=== PATIENT | female | born 1955 | race Caucasian/White ===

== ENCOUNTER 2016-05-15 14:01 | Inpatient (IN) ==
--- NOTE | 2016-05-15 14:20 | Emergency Department Note ---
Disposition Clinical Impression: Hyperlipidemia, Diarrhea, Crohns disease, Obesity, Chest pain, Hypotension, History of Coumadin therapy, Anemia, History of hypertension, Cerebrovascular disease, Thrombocythemia Disposition: Admitted As Inpatient Referrals: Lynda Messer CNP [Primary Care Provider] - Forms: Work/School Release, ED Satisfaction Letter General Adult HPI - General Chief complaint: ED General Medical Stated complaint: syncope/urinary symptoms Time Seen by Provider: 05/15/16 14:19 Source: patient, family Limitations: no limitations - History of Present Illness HPI Narrative: 61-year-old female reports to the emergency department with concerns for low blood pressure. She was recently evaluated regarding stool samples for her diarrhea, a stool panel was performed, a positive Calprotectin is was reported. The patient reports her diarrhea has been significant without bryce blood. She states she is on Coumadin for previous DVT and possible cardiac arrhythmia. The patient states she has had some generalized abdominal pain, she also complains of left upper chest pain which has been intermittent and sometimes somewhat sharp. The patient has not had any cardiac testing for many years. She has a history of cerebrovascular disease as well as obesity, hypertension, and hyperlipidemia. There is no history of cough or coughing up blood leg swelling or pain or syncope. She has felt weak like her blood pressure is low, her reported her blood pressure was measured very low at the house. There is no history of fever. No convulsion or confusion or acute back pain or fall. No trouble moving the arms or legs independently no strokelike symptoms. The patient's main concerns are diarrhea which has been persistent, low blood pressure, weakness and near syncope, as well as chest pain which is been sharp on the left side. The patient denies any bleeding. She is reportedly anticoagulated on warfarin. Pain Scale: 6 - Related Data Allergies Allergy/AdvReac Type Severity Reaction Status Date / Time naproxen [From Naprosyn] AdvReac Vomiting Verified 11/29/14 12:29 Penicillins AdvReac Seizure Verified 11/29/14 12:29 All systems ED: reviewed and negative except as stated. Past Medical History - Past Medical History Medical history: Reports: arthritis, CVA, fibromyalgia, hyperlipidemia, hypertension, thyroid disease, other Surgical history: Reports: carotid endarterectomy, cholecystectomy, hysterectomy Psychiatric history: Reports: anxiety, depression - Social History Smoking Status: Never smoker Smokeless Tobacco Status: No Alcohol use: Reports: none Drug use: Reports: none Physical Exam - General Limitations: no limitations General appearance: alert, in no apparent distress - Head Head exam: atraumatic, normocephalic, normal inspection - Eye Eye exam: Present: normal appearance, PERRL, EOMI. Absent: scleral icterus, conjunctival injection, miosis, mydriasis - ENT ENT exam: normal exam, normal oropharynx, mucous membranes moist, TM's normal bilaterally, normal external ear exam - Neck Neck exam: Present: normal inspection, full ROM, trachea midline. Absent: meningismus - Chest Chest inspection: Present: symmetric chest wall rise. Absent: tenderness - Respiratory Respiratory exam: Present: normal lung sounds bilaterally. Absent: respiratory distress - Cardiovascular Cardiovascular exam: Present: regular rate, normal rhythm, normal heart sounds - Abdominal Exam Abdominal exam: Present: soft, Non-Tender, Lee's sign, Rovsing's sign, tenderness at McBurney's Point. Absent: tenderness, distention, guarding, rebound, rigidity, normal bowel sounds, pulsatile mass - Extremities Exam Extremities exam: Present: normal inspection, full ROM, normal capillary refill. Absent: tenderness, pedal edema, joint swelling, calf tenderness - Expanded Lower Extremity Exam Lower leg exam: Absent: Homans' sign Neurovascular/Tendon exam: Absent: motor deficit, sensory deficit, tendon deficit, extremity cold to touch, pallor - Back Exam Back exam: Present: normal inspection, full ROM. Absent: tenderness, CVA tenderness (R), CVA tenderness (L), vertebral tenderness - Neurological Exam Neurological exam: Present: alert, oriented X3, CN II-XII intact. Absent: motor sensory deficit - Psychiatric Psychiatric exam: Present: normal affect, normal mood - Skin Skin exam: Present: warm, dry, intact, normal color. Absent: rash, cyanosis, diaphoresis, erythema, pallor, mottled Course Vital Signs Temperature 98.2 F 05/15/16 14:06 Pulse Rate 80 05/15/16 14:06 Respiratory Rate 16 05/15/16 14:06 Blood Pressure 102/61 05/15/16 14:06 O2 Sat by Pulse Oximetry 95 05/15/16 14:06 Temperature 98.2 F 05/15/16 14:06 Pulse Rate 78 05/15/16 15:15 Respiratory Rate 14 05/15/16 15:15 Blood Pressure 122/71 05/15/16 15:15 O2 Sat by Pulse Oximetry 98 05/15/16 15:15 Oxygen Delivery Oxygen Delivery Room Air Medical Decision Making - MDM Narrative Medical decision making narrative: The patient appears to be stable. She has had some diarrhea probably secondary to Crohn's. I do not have a previous hemoglobin to compare to. She is anemic. The patient is anticoagulated on Coumadin with an INR of 3.5. She has been complaining of some left-sided chest pain, she is obese, elderly, and has a history of hypertension and hyperlipidemia. Her cardiac testing here is essentially negative. Chest x-ray negative. Based on her risk factors and concerns for chest pain, significant risk factors for ACS, and near syncope, I thought it would be appropriate to admit the patient for further evaluation. I discussed the case with the hospitalist on-call who has accepted the patient to their care. Aspirin was ordered in the ED. - Lab Data Lab results reviewed: Yes I reviewed the patient's lab results. Result diagrams: 05/15/16 14:35 05/15/16 14:35 Lab Results 05/15/16 05/15/16 05/15/16 Range/Units 14:35 14:35 14:35 WBC 7.2 (4.3-11.1) K/mcL RBC 3.66 L (3.82-4.97) M/mcL Hgb 9.5 L (11.5-15.4) g/dL Hct 30.4 L (35.3-44.9) % MCV 83.1 (83.0-100.0) fL MCH 26.0 L (28.0-33.3) pg MCHC 31.3 L (31.6-35.5) g/dL RDW 13.9 (11.5-14.5) % Plt Count 469 H (140-400) K/mcL MPV 10.2 (9.4-12.4) fL Seg Neutrophils % 46.0 % Band Neutrophils % 2.0 (0-4) % Lymphocytes % 32.0 % Monocytes % 16.0 % Eosinophils % 4.0 % Neutrophils # 3.5 (1.6-8.9) K/mcL Lymphocytes # 2.3 (0.6-4.6) K/mcL Monocytes # 1.2 (0.0-1.3) K/mcL Eosinophils # 0.3 (0.0-0.6) K/mcL PT 39.6 H (9.4-12.1) Seconds INR 3.5 APTT 41.9 H (26.0-36.0) Seconds Sodium 139 (136-145) mEq/L Potassium 4.2 (3.5-4.5) mEq/L Chloride 106 (98-109) mEq/L Carbon Dioxide 24 (19-29) mEq/L BUN 17 (7-20) mg/dL Creatinine 0.64 (0.57-1.11) mg/dL Est GFR ( Amer) > 60 (> 60) Est GFR (Non-Af Amer) > 60 (> 60) BUN/Creatinine Ratio 27 H (6-26) Glucose 82 (70-99) mg/dL Calculated Osmolality 289 (280-300) Lactic Acid (0.5-2.2) mmol/L Calcium 7.7 L (8.6-10.8) mg/dL Total Bilirubin (0.2-1.2) mg/dL Direct Bilirubin (0.0-0.5) mg/dL Indirect Bilirubin (0.0-1.2) mg/dL AST (5-34) Units/L ALT (0-55) Units/L Alkaline Phosphatase (38-126) Units/L Creatine Kinase 42 (29-168) Units/L Troponin I (0-0.03) ng/mL C-Reactive Protein (Less than 5) mg/L Serum Total Protein (6.0-8.3) g/dL Albumin (3.5-5.0) g/dL Globulin (2.4-3.5) g/dL Albumin/Globulin Ratio (1.1-2.2) Lipase (8-78) Units/L Urine Color (Yellow) Urine Clarity (Clear) Urine pH (5.0-8.0) pH Units Ur Specific [place] (1.010-1.025) Urine Protein (Neg-Trace) mg/dL Urine Glucose (UA) (Normal) mg/dL Urine Ketones (Negative) mg/dL Urine Blood (Negative) Urine Nitrite (Negative) Urine Bilirubin (Negative) Urine Urobilinogen (Normal) mg/dL Ur Leukocyte Esterase (Negative) 05/15/16 05/15/1605/15/17 Range/Units 14:35 14:35 15:29 WBC (4.3-11.1) K/mcL RBC (3.82-4.97) M/mcL Hgb (11.5-15.4) g/dL Hct (35.3-44.9) % MCV (83.0-100.0) fL MCH (28.0-33.3) pg MCHC (31.6-35.5) g/dL RDW (11.5-14.5) % Plt Count (140-400) K/mcL MPV (9.4-12.4) fL Seg Neutrophils % % Band Neutrophils % (0-4) % Lymphocytes % % Monocytes % % Eosinophils % % Neutrophils # (1.6-8.9) K/mcL Lymphocytes # (0.6-4.6) K/mcL Monocytes # (0.0-1.3) K/mcL Eosinophils # (0.0-0.6) K/mcL PT (9.4-12.1) Seconds INR APTT (26.0-36.0) Seconds Sodium (136-145) mEq/L Potassium (3.5-4.5) mEq/L Chloride (98-109) mEq/L Carbon Dioxide (19-29) mEq/L BUN (7-20) mg/dL Creatinine (0.57-1.11) mg/dL Est GFR ( Amer) (> 60) Est GFR (Non-Af Amer) (> 60) BUN/Creatinine Ratio (6-26) Glucose (70-99) mg/dL Calculated Osmolality (280-300) Lactic Acid 0.7 (0.5-2.2) mmol/L Calcium (8.6-10.8) mg/dL Total Bilirubin (0.2-1.2) mg/dL Direct Bilirubin (0.0-0.5) mg/dL Indirect Bilirubin (0.0-1.2) mg/dL AST (5-34) Units/L ALT (0-55) Units/L Alkaline Phosphatase (38-126) Units/L Creatine Kinase (29-168) Units/L Troponin I 0.01 (0-0.03) ng/mL C-Reactive Protein 110 H (Less than 5) mg/L Serum Total Protein (6.0-8.3) g/dL Albumin (3.5-5.0) g/dL Globulin (2.4-3.5) g/dL Albumin/Globulin Ratio (1.1-2.2) Lipase (8-78) Units/L Urine Color (Yellow) Urine Clarity (Clear) Urine pH (5.0-8.0) pH Units Ur Specific [place] (1.010-1.025) Urine Protein (Neg-Trace) mg/dL Urine Glucose (UA) (Normal) mg/dL Urine Ketones (Negative) mg/dL Urine Blood (Negative) Urine Nitrite (Negative) Urine Bilirubin (Negative) Urine Urobilinogen (Normal) mg/dL Ur Leukocyte Esterase (Negative) 05/15/16 05/15/16 05/15/16 Range/Units 15:29 15:29 16:55 WBC (4.3-11.1) K/mcL RBC (3.82-4.97) M/mcL Hgb (11.5-15.4) g/dL Hct (35.3-44.9) % MCV (83.0-100.0) fL MCH (28.0-33.3) pg MCHC (31.6-35.5) g/dL RDW (11.5-14.5) % Plt Count (140-400) K/mcL MPV (9.4-12.4) fL Seg Neutrophils % % Band Neutrophils % (0-4) % Lymphocytes % % Monocytes % % Eosinophils % % Neutrophils # (1.6-8.9) K/mcL Lymphocytes # (0.6-4.6) K/mcL Monocytes # (0.0-1.3) K/mcL Eosinophils # (0.0-0.6) K/mcL PT (9.4-12.1) Seconds INR APTT (26.0-36.0) Seconds Sodium (136-145) mEq/L Potassium (3.5-4.5) mEq/L Chloride (98-109) mEq/L Carbon Dioxide (19-29) mEq/L BUN (7-20) mg/dL Creatinine (0.57-1.11) mg/dL Est GFR ( Amer) (> 60) Est GFR (Non-Af Amer) (> 60) BUN/Creatinine Ratio (6-26) Glucose (70-99) mg/dL Calculated Osmolality (280-300) Lactic Acid (0.5-2.2) mmol/L Calcium (8.6-10.8) mg/dL Total Bilirubin 0.2 (0.2-1.2) mg/dL Direct Bilirubin 0.1 (0.0-0.5) mg/dL Indirect Bilirubin 0.1 (0.0-1.2) mg/dL AST 10 (5-34) Units/L ALT 7 (0-55) Units/L Alkaline Phosphatase 123 (38-126) Units/L Creatine Kinase (29-168) Units/L Troponin I (0-0.03) ng/mL C-Reactive Protein (Less than 5) mg/L Serum Total Protein 5.4 L (6.0-8.3) g/dL Albumin 1.9 L (3.5-5.0) g/dL Globulin 3.5 (2.4-3.5) g/dL Albumin/Globulin Ratio 0.5 L (1.1-2.2) Lipase < 4 L (8-78) Units/L Urine Color Yellow (Yellow) Urine Clarity Clear (Clear) Urine pH 6.0 (5.0-8.0) pH Units Ur Specific [place] 1.024 (1.010-1.025) Urine Protein Negative (Neg-Trace) mg/dL Urine Glucose (UA) Normal (Normal) mg/dL Urine Ketones Negative (Negative) mg/dL Urine Blood Negative (Negative) Urine Nitrite Negative (Negative) Urine Bilirubin Negative (Negative) Urine Urobilinogen Normal (Normal) mg/dL Ur Leukocyte Esterase Negative (Negative) - Radiology Data Radiology results reviewed: Yes I reviewed the patient's radiology results.
[2016-05-15 14:44] LABS: Eosinophils # 0.3 K/mcL (0.0-0.6); Hematocrit 30.4 % (35.3-44.9); Hemoglobin 9.5 g/dL (11.5-15.4); Mean Corpuscular HGB Conc 31.3 g/dL (31.6-35.5); Mean Corpuscular Volume 83.1 fL (83.0-100.0); Mean Platelet Volume 10.2 fL (9.4-12.4); Platelet Count 469 K/mcL (140-400); Red Blood Count 3.66 M/mcL (3.82-4.97); Red Cell Distribution Width 13.9 % (11.5-14.5)
[2016-05-15 14:50] LABS: INR 3.5; Prothrombin Time 39.6 Seconds (9.4-12.1)
[2016-05-15 14:52] LABS: Activated Partial Thrombo Time 41.9 Seconds (26.0-36.0)
[2016-05-15 14:58] LABS: BUN/Creatinine Ratio 27 (6-26); Blood Urea Nitrogen 17 mg/dL (7-20); Calcium 7.7 mg/dL (8.6-10.8); Carbon Dioxide 24 mEq/L (19-29); Chloride 106 mEq/L (98-109); Creatine Kinase 42 Units/L (29-168); Glucose 82 mg/dL (70-99); Osmolality,Calculated 289 (280-300); Potassium 4.2 mEq/L (3.5-4.5); Sodium 139 mEq/L (136-145); eGFR For African Americans > 60 (> 60); eGFR For Non-African Americans > 60 (> 60)
[2016-05-15] MEDS ORDERED: Aspirin 325 MG TABLET PO ONE ×2 (14:58→15:15)
[2016-05-15 15:25] LABS: Lymphocytes # 2.3 K/mcL (0.6-4.6); Monocytes # 1.2 K/mcL (0.0-1.3); Neutrophils # 3.5 K/mcL (1.6-8.9)
[2016-05-15 15:50] LABS: Albumin 1.9 g/dL (3.5-5.0); Albumin/Globulin Ratio 0.5 (1.1-2.2); Bilirubin,Direct 0.1 mg/dL (0.0-0.5); Bilirubin,Indirect 0.1 mg/dL (0.0-1.2); Bilirubin,Total 0.2 mg/dL (0.2-1.2); Globulin 3.5 g/dL (2.4-3.5); Total Protein 5.4 g/dL (6.0-8.3)
[2016-05-15] MEDS ORDERED: *HR* LORazepam 2 MG/ML VIAL IVP ONE (17:14)
[2016-05-15 17:26] LABS: Bilirubin,Urine Negative (Negative); Blood,Urine Negative (Negative); Clarity,Urine Clear (Clear); Color,Urine Yellow (Yellow); Glucose,Urine (UA) Normal (Normal); Ketones,Urine Negative (Negative); Leukocyte Esterase,Urine Negative (Negative); Nitrite,Urine Negative (Negative); Protein,Urine Negative (Neg-Trace); Specific Gravity,Urine 1.024 (1.010-1.025); Urobilinogen,Urine Normal (Normal)
--- NOTE | 2016-05-15 20:32 | Internal Med History&Physical ---
<Sachi Boone - Last Filed: 05/16/16 01:54> Date of Encounter: 05/16/16 Time of Encounter: 20:30 Assessment and Plan (1) Diarrhea Current visit: Yes Status: Acute Patient presents with worsening of chronic diarrhea. She reports blood in her stool. Patient has seen Dr. Chambers in the past and had a colonoscopy in the past showing non-infectious gastroenteritis/colitis. Today patient has elevated CRP 110 and a recent PCR + for calprotectin. There is concern for a variant of Irritable Bowel Disease. We do need to ensure that this is not infectious in nature. Will get a c. diff, stool cutlure, and GI stool panel. Will also get a CT of the abdomen/pelvis with IV contrast. Should consider GI consult on Tuesday for further recommendations and evaluation. 1. CT scan abdomen and pelvis 2. C. Diff 3. Stool culture 4. GI stool panel 5. Consider consult to GI 6. Hold all antidiarrheal medications until we ensure this is not infectious Qualifiers: Diarrhea type: unspecified type Qualified Code(s): R19.7 - Diarrhea, unspecified (2) Anemia Current visit: Yes Status: Acute Patient with hemoglobin of 9.5 from 12.5 with lower blood pressures. She reports blood in her stool. Concern for possible GI bleed, which could be related to the primary cause of her diarrhea. Will trend H&H to ensure it remains stable. Will do a fecal occult blood. Patient may require upper and lower GI either here in the hospital or at a future date outpatient. 1. Trend H&H 2. Fecal occult blood 3. Iron studies 4. Will hold coumadin Qualifiers: Anemia type: unspecified type Qualified Code(s): D64.9 - Anemia, unspecified (3) Chest pain Current visit: Yes Status: Acute Patient reports left sided chest pain. Chest is tender to palpation and troponin 0.01. I do not believe that this chest pain is cardiac related. However, patient has had a previous heart attack, and has HLD and HTN. Patient has not had a cardiac work up in a long time. Will trend troponins and do further workup. She also says that the last time she had pain like this was before her endarterctomy. Will get BL carotid dopplars. 1. Trend troponins 2. ECHO 3. Stress Test 4. Carotid duplex Qualifiers: Chest pain type: unspecified Qualified Code(s): R07.9 - Chest pain, unspecified (4) Near syncope Current visit: Yes Status: Acute Near syncope due to unknown cause. She does have a history of dizziness on Midlizine. Current symptoms could be due to cardiac disease, carotid vascular disease, anemia or hypotension. Will continue with workout as described above. (5) Hypotension Current visit: Yes Status: Acute Will give fluids, monitor blood pressure and hold all blood pressure medications at this time. Qualifiers: Hypotension type: unspecified hypotension type Qualified Code(s): I95.9 - Hypotension, unspecified (6) Hypomagnesemia Current visit: Yes Status: Acute Replace magnesium and recheck (7) DVT prophylaxis Current visit: Yes Status: Acute SDC for DVT prophylaxis. Hold anticoagulation. Internal Medicine - H&P: HPI Chief complaint: Diarrhea, near syncope, and chest pain Admitted From: Emergency Dept Plans for Post Hospital Care: Home History of present illness: Ms. Rosales is a 61 year old female with PMH includign arthritis, CVA (June 2013 ), fibromyalgia, HLD, HTN, hypothyroid, CT (1979), DVT, arrhythmia on anticoagulation, and chronic diarrhea secondary to colitis. Patient presented to the ED with worsening diarrhea for the last two weeks and near syncope. Patient reports a chronic history of diarrhea but reports that it has gotten much worse over the past 2 weeks to the point where she cannot leave the house. She reports that currently she takes 3 tablets Bentyl 3x daily as well as lamotal 4x daily. She is still having 4-5 episodes of large amounts of watery diarrhea with diffuse abdominal fuller. Patient reports that the diarrhe has been dark with blood. She has been seen by Dr. Chambers and she had a colonoscopy back in July 2015 that showed noninfectious gastroenteritis/colitis and diverticulosis. Patient reports that she has been dizzy with blurry vision and episodes of near syncope over the last week. She has a history of vertigo on Meclizine but she reports this is different. She states that she feels like her blood pressure is low. Patient also reports left chest pressure for approximately the last 2 weeks. She describes it as a sharp shooting pain over her left chest. Nothing makes the pain better or worse. She states that the last time she had this chest was before she had to have her carotid endarterectomy. Patient also reports headache, weakness, and general frustration with the situation. Patient denies worsening SOB, changes in bladder function or pedal edema. In the ED, patient was afebrile. HR and RR were within normal limits. BP was in the 90s/50s. Patient reports that she normally runs 120-130/80s at home. Hemoglobin of 9.5. Previous Hgb on record show a baseline around 12.5.m. INR 3.5. Troponin 0.01. CRP elevated at 110. On exam, patient is awake and alert. She does have some expressive aphasia but is conversing appropriately. Chest tender on palpation. Heart was regular rate and rhythm. Lungs diminished in bases but no wheezing or crackles. Abdomen soft but tender to palpation in the left lower quadrant. No rebound, rigidity or guarding. No pedal edema noted. Motor and sensation grossly intact. Past Med Surg Social Fam HX - Past Medical History Medical history: arthritis, CVA, fibromyalgia, hyperlipidemia, hypertension, thyroid disease, other Psychiatric history: anxiety, depression - Past Surgical History Surgical History: carotid endarterectomy, cholecystectomy, hysterectomy - Social History Smoking Status: Never smoker Smokeless Tobacco Status: No Alcohol use: none Drug use: none - Family History Mother Living Status: Hx Family Cardiac Disorders: Yes (CAD) Father Living Status: Hx Family Cardiac Disorders: Yes (CAD) Internal Medicine - H&P: Meds Acetaminophen [Tylenol Arthritis] 500 mg PO BID PRN 05/15/16 [History] ClonazePAM [Klonopin] 0.5 mg PO DAILY 05/15/16 [History] Cyclobenzaprine [Flexeril] 10 mg PO BID 05/15/16 [History] Dexlansoprazole [Dexilant] 60 mg PO DAILY 05/15/16 [History] Diclofenac Sodium [Voltaren] 75 mg PO BID 05/15/16 [History] Dicyclomine [Bentyl] 20 mg PO TID 05/15/16 [History] Doxycycline Hyclate [Vibramycin] 100 mg PO 05/15/16 [History] Duloxetine HCl [Cymbalta] 60 mg PO BID 05/15/16 [History] Levothyroxine [Synthroid] 25 mcg PO DAILY 05/15/16 [History] Loratadine [Claritin] 10 mg PO DAILY 05/15/16 [History] Meclizine 25 mg PO TID 05/15/16 [History] Pregabalin [Lyrica] 150 mg PO BID 05/15/16 [History] Simvastatin [Zocor] 40 mg PO DAILY 05/15/16 [History] TraZODone 100 mg PO HS 05/15/16 [History] Warfarin [Coumadin] 5 mg PO 05/15/16 [History] Allergies naproxen [From Naprosyn] Adverse Reaction (Verified 11/29/14 12:29) Vomiting Penicillins Adverse Reaction (Verified 11/29/14 12:29) Seizure All Systems PM: A 10-system review of systems was performed and is negative for pertinent findings except as documented above in the HPI. - Constitutional Constitutional: weakness, no chills, no fever(s) - EENT Eyes: blurry vision - Cardiovascular Cardiovascular ROS IM: chest pain, lightheadedness, no dyspnea, no dyspnea on exertion, no edema, no irregular heart rhythm, no palpitations - Respiratory Respiratory: no cough, no dyspnea, no dyspnea on exertion, no wheezing - Gastrointestinal Gastrointestinal: abdominal pain, diarrhea, hematochezia, loose stools, no constipation - Genitourinary Genitourinary: no change in urinary stream, no dysuria - Neurological Neurological ROS: dizziness, headache(s), weakness, no convulsions - Constitutional Vitals: Temp Pulse Resp BP Pulse Ox 100.3 F H 96 18 98/52 98 05/15/16 19:43 05/15/16 19:43 05/15/16 19:43 05/15/16 19:43 05/15/16 19:43 General appearance: Present: A&O X 3, no acute distress, answers questions appropriately - Head Head exam: Present: atraumatic, normal inspection, normocephalic - Eye Eye exam: Present: EOMI, normal appearance - ENT ENT exam: Present: mucous membranes moist - Respiratory Respiratory exam: Present: CTAB. Absent: decreased breath sounds, rhonchi, wheezes - Cardiovascular Cardiovascular exam: Present: RRR - GI/Abdominal GI/Abdominal exam: Present: distended, guarding, normal bowel sounds, soft, tenderness. Absent: rebound, rigid - Extremities Exam Extremities exam: Present: normal inspection. Absent: pedal edema - Neurological Exam Neurological exam: Present: alert, CN II-XII intact, oriented X3 Additional comments: expressive aphasia Internal Med - H&P Results - Labs CBC & Chem 7: 05/15/16 22:48 05/15/16 14:35 <Greg Wall - Last Filed: 05/16/16 06:01> Date of Encounter: 05/16/16 Internal Medicine - H&P: HPI History of present illness: Ms. Rosales is a 61 year old female All Systems PM: A 10-system review of systems was performed and is negative for pertinent findings except as documented above in the HPI. - Constitutional Vitals: Temp Pulse Resp BP Pulse Ox 101.3 F H 98 20 105/66 95 05/16/16 03:40 05/16/16 03:40 05/16/16 03:40 05/16/16 03:40 05/16/16 03:40 Internal Med - H&P Results - Labs CBC & Chem 7: 05/15/16 22:48 05/15/16 14:35 - Attending Attestation I examined this patient and my medical decision-making was reviewed with the Resident Physician, Dr Boone. I agree with the documented findings, disposition and treatment plan as described except to the extent set forth below. Patient reports severe diarrhea and blood in the stool associated with abdominal pain. On exam her abdomen is soft nontender nondistended. CT scan of the abdomen and pelvis per my review shows distended colon with fluid contents and air-fluid levels with no evidence of obstruction. I suspect IBD versus infectious diarrhea. We will workup for infectious causes. Per chart review she had a viral panel which was negative, calprotectin elevated. We will consult GI on Tuesday. Hold off from steroids until infectious can Be ruled out.
[2016-05-15] MEDS ORDERED: Naloxone 0.4 MG/ML INJ IVP PRN (21:39)
[2016-05-15] MEDS ORDERED: Ondansetron ODT 4 MG TAB.RAPDIS SL PRN (21:39)
[2016-05-15] MEDS ORDERED: Magnesium Sulfate 2 GM in D5% in Water 100 ML IVPB ONE (21:47)
[2016-05-15] MEDS: 0.9 % Sodium Chloride 1,000 ML IVC SCH (22:49)
[2016-05-15 22:55] LABS: Hemoglobin 8.5 g/dL (11.5-15.4)
[2016-05-15] MEDS: traZODone 50 MG TABLET PO SCH (23:43)
[2016-05-15] MEDS: Pregabalin 75 MG CAPSULE PO SCH (23:43)
[2016-05-16] MEDS: Acetaminophen 325 MG TABLET PO PRN (03:44)
[2016-05-16] MEDS ORDERED: Regadenoson 0.4 MG/5 ML SYRINGE IVP ONE (07:10)
[2016-05-16 07:28] LABS: INR 3.9
[2016-05-16 07:30] LABS: Activated Partial Thrombo Time 43.7 Seconds (26.0-36.0)
[2016-05-16 07:32] LABS: BUN/Creatinine Ratio 17 (6-26); Blood Urea Nitrogen 10 mg/dL (7-20); Calcium 7.7 mg/dL (8.6-10.8); Carbon Dioxide 23 mEq/L (19-29); Chloride 106 mEq/L (98-109); Glucose 98 mg/dL (70-99); Magnesium 1.5 mg/dL (1.6-2.6); Osmolality,Calculated 283 (280-300); Phosphorous 3.4 mg/dL (2.3-4.7); Potassium 3.7 mEq/L (3.5-4.5); Sodium 137 mEq/L (136-145); eGFR For African Americans > 60 (> 60); eGFR For Non-African Americans > 60 (> 60)
[2016-05-16 07:36] LABS: Adenovirus F 40/41 PCR Not detected (Not detect); Astrovirus PCR Not detected (Not detect); C.difficile Toxin A/B by PCR Not detected (Not detect); Campylobacter by PCR Not detected (Not detect); Cryptosporidium by PCR Not detected (Not detect); Cyclospora cayetanensis PCR Not detected (Not detect); E. coli O157 by PCR Not detected (Not detect); Entamoeba histolytica PCR Not detected (Not detect); Enteroaggregative E.coli(EAEC) Not detected (Not detect); Enteropathogenic E.coli(EPEC) Not detected (Not detect); Enterotoxigenic E.coli (ETEC) Not detected (Not detect); Giardia lamblia PCR Not detected (Not detect); Norovirus GI/GII PCR Not detected (Not detect); Plesiomonas shigelloides PCR Not detected (Not detect); Rotavirus A PCR Not detected (Not detect); Salmonella PCR Not detected (Not detect); Sapovirus PCR Not detected (Not detect); Shig/EnteroinvasiveE coli EIEC Not detected (Not detect); Shigalike tox-prod E coli STEC Not detected (Not detect); Vibrio PCR Not detected (Not detect); Vibrio cholerae PCR Not detected (Not detect); Yersinia enterocolitica PCR Not detected (Not detect)
[2016-05-16 07:36] LABS: Prothrombin Time 43.8 Seconds (9.4-12.1)
[2016-05-16 08:06] LABS: Hematocrit 26.2 % (35.3-44.9); Hemoglobin 8.1 g/dL (11.5-15.4); Mean Corpuscular HGB Conc 30.9 g/dL (31.6-35.5); Mean Corpuscular Hemoglobin 25.7 pg (28.0-33.3); Mean Corpuscular Volume 83.2 fL (83.0-100.0); Mean Platelet Volume 10.5 fL (9.4-12.4); Platelet Count 389 K/mcL (140-400); Red Blood Count 3.15 M/mcL (3.82-4.97); Red Cell Distribution Width 14.2 % (11.5-14.5)
[2016-05-16] MEDS ORDERED: NON-FORMULARY MEDICATION 1 EACH EACH (Duloxetine Hcl [Cymbalta] 60 MG) PO SCH (09:00)
[2016-05-16] MEDS ORDERED: NON-FORMULARY MEDICATION 1 EACH EACH (Pregabalin [Lyrica] 150 MG) PO SCH (09:00)
[2016-05-16] MEDS: clonazePAM 0.5 MG TABLET PO SCH (09:34)
[2016-05-16] MEDS: *HR* HYDROcodone/Acet 5/325 mg TABLET PO PRN ×4 (09:34→22:59)
[2016-05-16] MEDS: Loratadine 10 MG TABLET PO SCH (09:34)
[2016-05-16] MEDS: Levothyroxine 25 MCG TABLET PO SCH (09:34)
[2016-05-16] MEDS: (Dexlansoprazole [Dexilant] 60 MG) PO SCH (09:35)
[2016-05-16] MEDS: Pregabalin 75 MG CAPSULE PO SCH ×2 (09:35→20:18)
[2016-05-16 10:14] LABS: Hematocrit 28.4 % (35.3-44.9); Hemoglobin 8.9 g/dL (11.5-15.4)
[2016-05-16] MEDS: 0.9 % Sodium Chloride 1,000 ML IVC SCH (11:00)
--- NOTE | 2016-05-16 11:32 | Nuclear Medicine Stress Report ---
Regadenoson Nuclear Stress Name: Liberty Rosales Date of Study: 05/16/2016 Date: 1955 Ht: 66.0 in Medical Record#: [id number] Age: 61 Wt: 180.0 lb Gender: Female Order #: [id number] Location: [facility] Room: [facility] Supervising Provider: Jeanie Ramirez CNP Reading Physician: Ashley Berg DO Ordering Physician: Christopher Hinojosa MD Primary Care Physician: Lynda Messer CNP Stress Technologist: Yanni Lance SUPERVISORY EXAMINER, CCT Steel Worker: Alice Matthews Indications: Chest Pain Impression: Very technically challenging study. There is bowel wall uptake obscuring the inferior wall limiting interpretation in this area. There is mild decrease uptake in the anterior wall during stress which may be obscured by breast attenuation. Definite ischemia cannot be determined. Patient had atypical chest pain symptoms with pharmacologic infusion. Gated EF >70%. No pharmacologic ECG abnormalities. Recommend clinical correlation or consideration of an alternative testing modality. History: Hypertension Hypercholesteremia Stress Test Summary: Stress Test Type: Pharmacologic Regadenoson 0.4mg/5ml given IV Baseline Information: Initial Heart Rate: 91 Blood Pressure: 120/60 Stress Information: Test Terminated Due to (primary): As per protocol Maximum Blood Pressure: 116/72 Maximum Heart Rate: 96 Percent Maximum Heart Rate Achieved: 60 Double Product: [id number] METS Reached: 1 Symptoms: Chest pain Nuclear Summary: SPECT myocardial perfusion imaging using Tc99m Sestamibi given intravenously was performed at rest and following cardiac stress testing. The resting images were obtained following initial dose of 11.7 mCi. Following stress an additional dose of 35.1 mCi was given at peak exercise or 30 seconds post regadenoson infusion. Medication Given: Time Medication Dose Units Route Findings: Stress Note * Resting ECG demonstrated normal sinus rhythm with normal findings. * Pharmacologic stress ECG is negative for ischemia at level of heart rate achieved. * No arrhythmias were noted during stress. * Patient had atypical chest pain during stress. Hemodynamic responses * Normal hemodynamic responses to pharmacologic stress. Study Quality * Technically difficult/limited study. Gated EF > 70% * Gated EF > 70%. Left Ventricle * The left ventricle is not dilated. TID * No evidence of transient ischemic dilatation. Lung Uptake * There is no evidence of increase lung uptake. PERFUSION * Bowel wall uptake of perfusion tracer obscures interpretation of the inferior wall. * Mild decrease in perfusion uptake during stress of the anterior wall may be obscured from breast attenuation. Updated by Ashley Berg on 05/16/2016 11:28:43 AM electronically signed on 05/16/2016 11:29:45 AM with status of Final
--- NOTE | 2016-05-16 12:14 | Internal Med Progress Note ---
<Elroy Weaver - Last Filed: 05/16/16 12:12> Date of Encounter: 05/16/16 Time of Encounter: 12:14 - Assessment and plan (1) Colitis Current Visit: Yes Status: Acute Assessment and plan: CT findings suggestive of colitis of the cecum and proximal colon. Etiology unclear. Infectious versus inflammatory? She is febrile so we will start her on Cipro and flagyl follow up with stool studies. Consult GI. She has + hemmoccult but no active bleeding since admssion. If this develops we will reverse her INR. currently she is hemodynamically. stable. (2) Atypical chest pain Current Visit: Yes Status: Acute Assessment and plan: currently chest pain free. Trononins are negative. We will follow up with stress test results. (3) Lymphocytic colitis Current Visit: Yes Status: Acute Assessment and plan: per biopsy findings in July 2015 currently on loperamine. May need to consider Endocort if diarrhea still persist and infection is ruled out. (4) Anemia Current Visit: Yes Status: Acute Assessment and plan: likley from GI losses. continue to trend. No signs of active bleeding. If she dose then we willl reverse her coumadin. Will alos place her on a PPI. (5) Hypomagnesemia Current Visit: Yes Status: Acute Assessment and plan: replete (6) Hypoalbuminemia Current Visit: Yes Status: Acute Assessment and plan: likely from chronic diarrhea. consult nutrition. (7) Coagulopathy Current Visit: Yes Status: Acute Assessment and plan: Hold Coumadin (8) Atrial fibrillation Current Visit: Yes Status: Acute Assessment and plan: curently rate controlled. hold coumadin (9) DVT prophylaxis Current Visit: Yes Status: Acute Assessment and plan: EPCDs - Subjective Interval history: Today volodymyr reports no further epidose of chest pain. She dose admit to continued loose brown stools. Denies hematochezia or melena at this time. she denies any abdominal pain. She denies any syncope or presyncope .Denies cough wheeze and dyspnea. She has no further complaints or concerns at this time. - Constitutional Vitals: Temp Pulse Resp BP Pulse Ox 99.4 F 62 15 92/57 95 05/16/16 11:13 05/16/16 11:13 05/16/16 11:13 05/16/16 11:13 05/16/16 11:13 General appearance: Present: A&O X 3, no acute distress, answers questions appropriately - Head Head exam: Present: atraumatic, normocephalic - Eye Eye exam: Present: PERRL, conjuntiva pink, sclera anicteric Pupils: Present: PERRL - Neck Neck exam general surgery: Present: supple, trachea midline. Absent: lymphadenopathy - Respiratory Respiratory exam: Present: CTAB. Absent: accessory muscle use, rales, rhonchi, wheezes - Cardiovascular Cardiovascular exam: Present: RRR, +S1, +S2. Absent: diastolic murmur, gallop, rubs, systolic murmur - GI/Abdominal GI/Abdominal exam: Present: normal bowel sounds, soft, no peritoneal signs. Absent: distended, tenderness - Extremities Exam Extremities exam: Present: warm, radial pulses palpable and symetrical. Absent : calf tenderness, cyanotic, pedal edema - Skin Skin exam: Present: dry, intact Internal Medicine: Result - Labs CBC & Chem 7: 05/16/16 10:05 05/16/16 06:48 Labs: Short CBC 05/16/16 05/16/16 Range/Units 06:48 10:05 WBC 6.6 (4.3-11.1) K/mcL Hgb 8.1 L 8.9 L (11.5-15.4) g/dL Hct 26.2 L 28.4 L (35.3-44.9) % Plt Count 389 (140-400) K/mcL BMP 05/16/16 06:48 Sodium 137 Potassium 3.7 Chloride 106 Carbon Dioxide 23 BUN 10 Creatinine 0.60 Glucose 98 Calcium 7.7 L Cardiac Enzymes 05/16/16 Range/Units 06:48 Troponin I 0.00 (0-0.03) ng/mL - ABG Interpretation ABG results: PT/INR, D-dimer PT 43.8 Seconds (9.4-12.1) H* 05/16/16 06:48 - VTE Reasons for not Prescribing Prophylaxis: Medical contraindication Consult Discharge Plan - Plan Referrals: Lynda Messer, CSR [Primary Care Provider] - <Christopher Hinojosa H - Last Filed: 05/16/16 14:02> Date of Encounter: 05/16/16 - Constitutional Vitals: Temp Pulse Resp BP Pulse Ox 99.4 F 62 15 92/57 95 05/16/16 11:13 05/16/16 11:13 05/16/16 11:13 05/16/16 11:13 05/16/16 11:13 Internal Medicine: Result - Labs CBC & Chem 7: 05/16/16 10:05 05/16/16 06:48 Labs: Short CBC 05/16/16 05/16/16 Range/Units 06:48 10:05 WBC 6.6 (4.3-11.1) K/mcL Hgb 8.1 L 8.9 L (11.5-15.4) g/dL Hct 26.2 L 28.4 L (35.3-44.9) % Plt Count 389 (140-400) K/mcL BMP 05/16/16 06:48 Sodium 137 Potassium 3.7 Chloride 106 Carbon Dioxide 23 BUN 10 Creatinine 0.60 Glucose 98 Calcium 7.7 L Cardiac Enzymes 05/16/16 Range/Units 06:48 Troponin I 0.00 (0-0.03) ng/mL - ABG Interpretation ABG results: PT/INR, D-dimer PT 43.8 Seconds (9.4-12.1) H* 05/16/16 06:48 - Attending Attestation acute blood loss anemia possible lower GI bleed due to colitis (unknown etiology , possibly infectious vs autoimmune as she was diagnosed with lymphocytic colitis) GI consulted. MIght reverse INR if continues to bleed (FFP and Vit K) Monitor CBC I examined this patient and my medical decision-making was reviewed with the FAMILY PRACTITIONER/PA/Advanced Practice Nurse/Resident Physician. I agree with the documented findings, disposition and treatment plan as described except to the extent set forth below.
[2016-05-16 13:07] LABS: % Iron Saturation 6 % (15-50); Iron 8 mcg/dL (50-170); Transferrin 94 mg/dL (180-382)
[2016-05-16 13:27] LABS: Ferritin 179 ng/ml (5-204)
[2016-05-16] MEDS: MetroNIDAZOLE 500 MG/100 ML 500 MG/100 ML BAG IVPB SCH ×2 (16:04→23:00)
[2016-05-16] MEDS: Cholestyramine 4 GM POWD.PACK PO SCH ×2 (16:05→17:25)
[2016-05-16] MEDS: Pantoprazole 40 MG VIAL IVP SCH (17:24)
[2016-05-16] MEDS: traZODone 50 MG TABLET PO SCH (20:18)
[2016-05-16] MEDS ORDERED: traZODone 50 MG TABLET PO SCH (21:00)
[2016-05-17 06:00] LABS: Hematocrit 26.3 % (35.3-44.9); Hemoglobin 8.2 g/dL (11.5-15.4); Mean Corpuscular HGB Conc 31.2 g/dL (31.6-35.5); Mean Corpuscular Hemoglobin 26.2 pg (28.0-33.3); Mean Platelet Volume 10.5 fL (9.4-12.4); Platelet Count 359 K/mcL (140-400); Red Blood Count 3.13 M/mcL (3.82-4.97); Red Cell Distribution Width 14.2 % (11.5-14.5)
[2016-05-17 06:05] LABS: INR 2.6; Prothrombin Time 28.6 Seconds (9.4-12.1)
[2016-05-17 06:08] LABS: Activated Partial Thrombo Time 36.8 Seconds (26.0-36.0)
[2016-05-17 06:12] LABS: BUN/Creatinine Ratio 11 (6-26); Blood Urea Nitrogen 6 mg/dL (7-20); Calcium 7.7 mg/dL (8.6-10.8); Carbon Dioxide 20 mEq/L (19-29); Chloride 108 mEq/L (98-109); Glucose 101 mg/dL (70-99); Magnesium 1.3 mg/dL (1.6-2.6); Osmolality,Calculated 286 (280-300); Phosphorous 3.3 mg/dL (2.3-4.7); Potassium 3.3 mEq/L (3.5-4.5); Sodium 139 mEq/L (136-145); eGFR For African Americans > 60 (> 60); eGFR For Non-African Americans > 60 (> 60)
[2016-05-17] MEDS: Pantoprazole 40 MG VIAL IVP SCH ×2 (06:15→21:53)
[2016-05-17] MEDS: Levothyroxine 25 MCG TABLET PO SCH (08:08)
[2016-05-17] MEDS: Cholestyramine 4 GM POWD.PACK PO SCH ×2 (08:08→17:10)
[2016-05-17] MEDS: MetroNIDAZOLE 500 MG/100 ML 500 MG/100 ML BAG IVPB SCH ×2 (08:08→23:11)
[2016-05-17] MEDS: Pregabalin 75 MG CAPSULE PO SCH ×2 (08:09→21:52)
[2016-05-17] MEDS: clonazePAM 0.5 MG TABLET PO SCH (08:09)
[2016-05-17] MEDS: Loratadine 10 MG TABLET PO SCH (08:09)
[2016-05-17] MEDS: (Dexlansoprazole [Dexilant] 60 MG) PO SCH (08:10)
[2016-05-17] MEDS ORDERED: Magnesium Sulfate 2 GM in D5% in Water 100 ML IVPB ONE (08:10)
[2016-05-17] MEDS ORDERED: Potassium Chloride Elixir 20 MEQ/15 ML UDC PO ONE (08:10)
--- NOTE | 2016-05-17 09:10 | Internal Med Progress Note ---
<Elroy Weaver - Last Filed: 05/17/16 09:07> Date of Encounter: 05/17/16 Time of Encounter: 09:07 - Assessment and plan (1) Colitis Current Visit: Yes Status: Acute Assessment and plan: CT findings suggestive of colitis of the cecum and proximal colon. Etiology unclear. Infectious versus inflammatory? She is febrile so we will start her on Cipro and flagyl follow up with stool studies. Consult GI. She has + hemmoccult but no active bleeding since admssion. If this develops we will reverse her INR. currently she is hemodynamically. stable. 05/17/16 Patient remains hemodynamically stable. GI infectious panel was negative. She continues to have loose bloody stools. Possibly from enteritis? or diverticulosis? we will reverse her INR as she continues to have blood in her stool and Hg is trending down. Per patients report she is on Coumadin for Afib ad also has history of a provoked PE many years ago. can resume after bleeding has resolved. GI was consulted. Appreciate Dr. Martinez recommendations. (2) Atypical chest pain Current Visit: Yes Status: Acute Assessment and plan: currently chest pain free. Trononins are negative. We will follow up with stress test results. 05/17/16 nuclear stress test negative for ischemia. However this was a poor quality test. She had atypical symptoms. Troponins were negative X 3 so highly unlikely that this was ACS. This is in the setting of acute blood loss anemia. will continue to monitor. May consider repeat testing as an outpatient. (3) Lymphocytic colitis Current Visit: Yes Status: Acute Assessment and plan: per biopsy findings in July 2015 currently on loperamine. May need to consider Endocort if diarrhea still persist. (4) Anemia Current Visit: Yes Status: Acute Assessment and plan: likley from GI losses. continue to trend. She is having blood in her stools so we will reverse her coumadin. Continue to monitor closely. (5) Hypomagnesemia Current Visit: Yes Status: Acute Assessment and plan: replete (6) Hypoalbuminemia Current Visit: Yes Status: Acute Assessment and plan: likely from chronic diarrhea. nutrition consulted. (7) Coagulopathy Current Visit: Yes Status: Acute Assessment and plan: Hold Coumadin 2 units of FFP now. (8) Atrial fibrillation Current Visit: Yes Status: Acute Assessment and plan: curently rate controlled. hold coumadin (9) DVT prophylaxis Current Visit: Yes Status: Acute Assessment and plan: EPCDs - Subjective Interval history: Patient states that she ontinues to have diarrhea. She reports five episodes overnigh. She reports bright red blood in her stool as well. she denies any further chest pain. She denies any syncope or presyncope. She denies any dyspnea. She dose admit mild diffuse crampy abdominal pain. She has no further complaints or concerns at this time. - Constitutional Vitals: Temp Pulse Resp BP Pulse Ox 97.5 F L 81 16 130/65 92 L 05/17/16 06:42 05/17/16 06:42 05/17/16 06:42 05/17/16 06:42 05/17/16 06:42 General appearance: Present: A&O X 3, no acute distress, answers questions appropriately - Head Head exam: Present: atraumatic, normocephalic - Eye Eye exam: Present: PERRL, conjuntiva pink, sclera anicteric Pupils: Present: PERRL - Neck Neck exam general surgery: Present: supple, trachea midline. Absent: lymphadenopathy - Respiratory Respiratory exam: Present: CTAB. Absent: accessory muscle use, rales, rhonchi, wheezes - Cardiovascular Cardiovascular exam: Present: RRR, +S1, +S2. Absent: diastolic murmur, gallop, rubs, systolic murmur - GI/Abdominal GI/Abdominal exam: Present: normal bowel sounds, soft, tenderness (mild diffuse) , no peritoneal signs. Absent: distended - Extremities Exam Extremities exam: Present: warm, radial pulses palpable and symetrical. Absent : calf tenderness, cyanotic, pedal edema - Skin Skin exam: Present: dry, intact Internal Medicine: Result - Labs CBC & Chem 7: 05/17/16 05:20 05/17/16 05:20 Labs: Short CBC 05/16/16 05/17/16 Range/Units 10:05 05:20 WBC 5.3 (4.3-11.1) K/mcL Hgb 8.9 L 8.2 L (11.5-15.4) g/dL Hct 28.4 L 26.3 L (35.3-44.9) % Plt Count 359 (140-400) K/mcL BMP 05/17/16 05:20 Sodium 139 Potassium 3.3 L Chloride 108 Carbon Dioxide 20 BUN 6 L Creatinine 0.55 L Glucose 101 H Calcium 7.7 L - ABG Interpretation ABG results: PT/INR, D-dimer PT 28.6 Seconds (9.4-12.1) H 05/17/16 05:20 - VTE Reasons for not Prescribing Prophylaxis: Medical contraindication Documentation of Mechanical Device: Intermittent pneumatic compression device Consult Discharge Plan - Plan Referrals: Lynda Messer CNP [Primary Care Provider] - <Christopher Hinojosa H - Last Filed: 05/17/16 13:22> Date of Encounter: 05/17/16 - Constitutional Vitals: Temp Pulse Resp BP Pulse Ox 98.2 F 84 16 115/66 95 05/17/16 11:16 05/17/16 11:16 05/17/16 11:16 05/17/16 11:16 05/17/16 11:16 Internal Medicine: Result - Labs CBC & Chem 7: 05/17/16 05:20 05/17/16 05:20 Labs: Short CBC 05/17/16 Range/Units 05:20 WBC 5.3 (4.3-11.1) K/mcL Hgb 8.2 L (11.5-15.4) g/dL Hct 26.3 L (35.3-44.9) % Plt Count 359 (140-400) K/mcL [facility] 05/17/16 05:20 Sodium 139 Potassium 3.3 L Chloride 108 Carbon Dioxide 20 BUN 6 L Creatinine 0.55 L Glucose 101 H Calcium 7.7 L - ABG Interpretation ABG results: PT/INR, D-dimer PT 28.6 Seconds (9.4-12.1) H 05/17/16 05:20 - Attending Attestation acute blood loss anemia possible lower GI bleed due to acute colitis (unknown etiology, possibly infectious vs autoimmune as she was diagnosed with lymphocytic colitis) The patient is complaining of rectal bleed. Hold warfarin, start fresh frozen plasma 2 units and give a dose of vitamin K Continue ciprofloxacin and Flagyl IV day 2, may put nothing by mouth if worse I examined this patient and my medical decision-making was reviewed with the HULL MOLDER/PA/Advanced Practice Nurse/Resident Physician. I agree with the documented findings, disposition and treatment plan as described except to the extent set forth below.
[2016-05-17] MEDS: 0.9 % Sodium Chloride 1,000 ML IVC SCH ×3 (10:48→10:49)
--- NOTE | 2016-05-17 11:08 | ECHO - Doppler Report ---
Echocardiogram Name: Liberty Rosales Date of Study: 05/16/2016 Date: 1955 Ht: 67.0 in Medical Record#: [id number] Age: 61 Wt: 180.0 lb Gender: Female BSA: 1.93 Order #: [id number] Location: [facility] Room #: [facility] Reading Physician: Jeramy Quijano DO, CHARANJIT, FESTUS FERNANDO Tree Thinner: Marla Echeverria RVT, ASHLY Ordering Physician: Sachi Boone DO Primary Physician: None Indications: Chest pain Impressions: LVEF 60-65%. Normal LV chamber size, wall thickness and function. Normal left ventricular diastolic function. Normal right ventricular structure and function. Mild aortic sclerosis suggested by Doppler (Mean gradient 11 mmHg). No evidence of pulmonary hypertension. Left Ventricular Wall Motion: Rest Echo Findings All wall segments showed normal motion. Findings: Study Quality * Technically adequate exam. ECG Findings * Normal sinus rhythm. Left Ventricle * LVEF 60-65%. * Normal LV chamber size, wall thickness and function. * Normal left ventricular diastolic function. Right Ventricle * Normal right ventricular structure and function. Left Atrium * Normal left atrial size. Right Atrium * Normal right atrial size. Interatrial Septum * No evidence of PFO by color Doppler. Aortic Valve * Aortic valve not well visualized. * Grossly, the aortic valve appears to be trileaflet. * No aortic regurgitation. * Mild aortic sclerosis suggested by Doppler (Mean gradient 11 mmHg). Mitral Valve * Normal mitral valve structure and function. * No mitral stenosis. * Trace mitral regurgitation. Tricuspid Valve * Normal tricuspid valve structure and function. * Trace tricuspid regurgitation. * No evidence of pulmonary hypertension. Pulmonic Valve * Pulmonic valve not well visualized. * Trace pulmonic regurgitation. Aorta * Normally sized aortic root. Pericardium * The pericardium appears normal. IVC * Normal IVC dimensions and inspiratory collapse. Pulmonary Artery * Normal visualized portions of the main pulmonary artery. History Hypertension Measurements: BP: 106/ 65 2D Normal Values RVIDd: 2.90 cm <2.7 cm IVSd: .90 cm 0.6 - 1.0 cm LVIDd: 4.00 cm 3.7 - 5.6 cm LVPWd: .90 cm 0.6 - 1.1 cm LVIDs: 2.30 cm 1.5 - 3.6 cm AO: 2.90 cm < 4.0 cm LA: 3.50 cm 2.0 - 4.0cm %FS: 42.50 cm >25 % LVOT Diam: 2.00 cm LA volume: 42 Mitral Valve Dec Time:222.00 msec Peak E:1.20 m/sec Peak A:1.05 m/sec E/A Ratio:1.1 Peak E' Lat Joshua:16.9 cm/s Peak E' Med Joshua:14.3 cm/s E/E' Lat Ratio:7.1 E/E' Med Ratio:8.4 LVOT Peak Joshua:.95 m/sec Mean Joshua:.61 m/sec Peak Grad:4.00 mmHg Mean Grad:2.00 mmHg Aortic Valve Peak Joshua:2.48 m/sec Mean Joshua:1.55 m/sec Peak Grad:25.00 mmHg Mean Grad:11.00 mmHg Valve Area:1.31 cm2 Tricuspid Valve TV Regurg Peak Grad: 18.00mmHg TV Regurg Peak Joshua: 2.14m/sec Updated by Jeramy Quijano DO, FACJose, ABDULLAHI, FASRENUKA on 05/17/2016 10:59:48 AM electronically signed on 05/17/2016 11:02:14 AM with status of Final Wall Motion Faria: 1=Normal, 2=Hypokinesis, 3=Akinesis, 4=Dyskinesis, 5=Aneurysmal, 6=Hyperkinetic, X=Not Visualized (Blank)=Missing
--- NOTE | 2016-05-17 11:42 | Gastroenterology Consult Note ---
<Augustin Beltran Jose - Last Filed: 05/17/16 11:39> Date of Encounter: 05/17/16 Time of Encounter: 10:35 - Assessment and plan (1) Anemia Current Visit: Yes Status: Acute Assessment and plan: Hgb 9.5 on admission, 8.2 this AM. Continue to monitor CBC and transfuse PRBC as needed. FOBT positive. Qualifiers: Qualified Code(s): D50.0 - Iron deficiency anemia secondary to blood loss ( chronic) (2) Coagulopathy Current Visit: Yes Status: Acute Assessment and plan: INR 2.6 this AM. Continue to hold Coumadin. Pt to receive 2 units FFP today. (3) Colitis Current Visit: Yes Status: Acute Assessment and plan: CT A/P suggestive of colitis in cecum and proximal colon. Continue Cipro and Flagyl. Cholestyramine started today. GI panel negative, will check fecal calprotectin, pancreatic elastase, and fecal fat. (4) Lymphocytic colitis Current Visit: Yes Status: Acute Assessment and plan: Pt diagnosed during colonoscopy on 08/07/15. Pt treated with Entocort, which helped with diarrhea for about 1.5 months. - Time Spent With Patient Total time spent is greater than 50% in coordination of care (as documented) at patient's floor/unit and/or counseling patient: GI History of Present Illness - Data of Consult Patient: known to practice within the last 3 years Consult date: 05/17/16 Requesting Physician: Christopher Hinojosa - Consult Narrative Reason for consult: Lower GI bleed, colitis History of present illness: Ms. Rosales is a 61 year old female with PMHx of arthritis, CVA (June 2013), fibromyalgia, HLD, HTN, thyroid disease, [place] (1979), arrhythmia on Coumadin who presented to the ED with worsening diarrhea for the past 2 weeks and near syncope. She is taking Bentyl 3 tabs TID and Lomotil 4 times daily, and continues to have 4-5 episodes of watery diarrhea and abdominal pain. She reports the diarrhea has been with dark blood. She was started on Cipro and Flagyl. Patient reports that she has been dizzy with blurry vision and episodes of near syncope over the last week. She has a history of vertigo on Meclizine but she reports this is different. She states that she feels like her blood pressure is low. On admission Hgb 9.5 with baseline around 12.5. This AM, Hgb 8.2. INR on admission 3.5 and this AM 2.6. Procedures: Colonoscopy 08/07/2015 with medium-sized lipoma in the proximal transverse colon, diverticulosis, lymphocytic colitis. EGD 08/07/2015 with normal esophagus, polypoid lesion in gastric fundus, recommended EUS of gastric fundus lesion. NSAIDs: ASA Anticoagulation: Coumadin Past Med Surg Social Fam HX - Past Medical History Medical history: arthritis, CVA, fibromyalgia, hyperlipidemia, hypertension, thyroid disease, other Psychiatric history: anxiety, depression - Past Surgical History Surgical History: carotid endarterectomy, cholecystectomy, hysterectomy - Social History Smoking Status: Never smoker Smokeless Tobacco Status: No Alcohol use: none Drug use: none - Family History Mother Living Status: Hx Family Cardiac Disorders: Yes (CAD) Father Living Status: Hx Family Cardiac Disorders: Yes (CAD) - Gastrointestinal Gastrointestinal: Present: as per HPI - Constitutional Constitutional: as per HPI - EENT Eyes: as per HPI Ears: Present: as per HPI Nose, mouth and throat: Present: as per HPI - Cardiovascular Cardiovascular ROS: Present: as per HPI - Respiratory Respiratory IM: Present: as per HPI - Genitourinary Genitourinary: Absent: change in color, Urinary frequency - Neurological ROS Neurological GI: Present: as per HPI - Hematologic/Lymphatic Hematologic/Lymphatic pediatric: Present: as per HPI - Musculoskeletal Musculoskeletal ROS GI: Present: as per HPI - Integumentary Integumentary GI: Present: as per HPI - Endocrine Endocrine IM: Present: as per HPI - Constitutional Vitals: Temp Pulse Resp BP Pulse Ox 98.2 F 84 16 115/66 95 05/17/16 11:16 05/17/16 11:16 05/17/16 11:16 05/17/16 11:16 05/17/16 11:16 General appearance: Present: cooperative, A&O X 3, no acute distress, answers questions appropriately - Head Head exam: Present: atraumatic, normocephalic - Eye Eye exam: Present: normal appearance, sclera anicteric - ENT ENT exam: Present: mucous membranes moist - Neck Neck exam general surgery: Present: normal inspection, trachea midline - Respiratory Respiratory exam: Present: CTAB. Absent: rales, rhonchi - Cardiovascular Cardiovascular exam: Present: RRR, +S1, +S2 - GI/Abdominal GI/Abdominal exam: Present: soft, tenderness (Diffuse pain with palpation), no peritoneal signs. Absent: distended, firm, guarding - Rectal Rectal exam: Present: deferred - Extremities Exam Extremities exam: Present: warm - Neurological Exam Neurological exam: Present: no focal deficits - Psychiatric Psychiatric exam: Present: normal affect, normal mood - Skin Skin exam: Present: dry, intact, normal color, warm Results - Labs CBC & Chem 7: 05/17/16 05:20 05/17/16 05:20 Labs: Last Result Calcium 7.7 mg/dL (8.6-10.8) L 05/17/16 05:20 Iron 8 mcg/dL (50-170) L 05/16/16 06:48 % Saturation 6 % (15-50) L 05/16/16 06:48 Transferrin 94 mg/dL (180-382) L 05/16/16 06:48 Ferritin 179 ng/ml (5-204) 05/16/16 06:48 Troponin I 0.00 ng/mL (0-0.03) 05/16/16 06:48 C-Reactive Protein 110 mg/L (Less than 5) H 05/15/16 15:29 Stool Occult Blood Positive (Negative) A 05/16/16 06:00 Entire Visit Hgb 8.2 g/dL (11.5-15.4) L 05/17/16 05:20 Hct 26.3 % (35.3-44.9) L 05/17/16 05:20 PT 28.6 Seconds (9.4-12.1) H 05/17/16 05:20 Ferritin 179 ng/ml (5-204) 05/16/16 06:48 Total Bilirubin 0.2 mg/dL (0.2-1.2) 05/15/16 15:29 AST 10 Units/L (5-34) 05/15/16 15:29 ALT 7 Units/L (0-55) 05/15/16 15:29 Lipase < 4 Units/L (8-78) L 05/15/16 15:29 - ABG ABG results: PT/INR, D-dimer PT 28.6 Seconds (9.4-12.1) H 05/17/16 05:20 Consult Discharge Plan - Plan Referrals: Lynda Messer, LABORATORY GENETICIST [Primary Care Provider] - <Flavia Wolfe - Last Filed: 05/17/16 14:54> Date of Encounter: 05/17/16 Time of Encounter: 14:00 - Time Spent With Patient Total time spent is greater than 50% in coordination of care (as documented) at patient's floor/unit and/or counseling patient: GI History of Present Illness - Data of Consult Requesting Physician: Christopher Hinojosa - Consult Narrative History of present illness: Ms. Rosales is a 61 year old female - Constitutional Vitals: Temp Pulse Resp BP Pulse Ox 98.2 F 84 16 115/66 95 05/17/16 11:16 05/17/16 11:16 05/17/16 11:16 05/17/16 11:16 05/17/16 11:16 Results - Labs CBC & Chem 7: 05/17/16 05:20 05/17/16 05:20 Labs: Last Result Calcium 7.7 mg/dL (8.6-10.8) L 05/17/16 05:20 Iron 8 mcg/dL (50-170) L 05/16/16 06:48 % Saturation 6 % (15-50) L 05/16/16 06:48 Transferrin 94 mg/dL (180-382) L 05/16/16 06:48 Ferritin 179 ng/ml (5-204) 05/16/16 06:48 Troponin I 0.00 ng/mL (0-0.03) 05/16/16 06:48 C-Reactive Protein 110 mg/L (Less than 5) H 05/15/16 15:29 Stool Occult Blood Positive (Negative) A 05/16/16 06:00 Entire Visit Hgb 8.2 g/dL (11.5-15.4) L 05/17/16 05:20 Hct 26.3 % (35.3-44.9) L 05/17/16 05:20 PT 28.6 Seconds (9.4-12.1) H 05/17/16 05:20 Ferritin 179 ng/ml (5-204) 05/16/16 06:48 Total Bilirubin 0.2 mg/dL (0.2-1.2) 05/15/16 15:29 AST 10 Units/L (5-34) 05/15/16 15:29 ALT 7 Units/L (0-55) 05/15/16 15:29 Lipase < 4 Units/L (8-78) L 05/15/16 15:29 - ABG ABG results: PT/INR, D-dimer PT 28.6 Seconds (9.4-12.1) H 05/17/16 05:20 - Attending Attestation I examined this patient and my medical decision-making was reviewed with the SECURITY AMBASSADOR/PA/Advanced Practice Nurse/Resident Physician. I agree with the documented findings, disposition and treatment plan as described except to the extent set forth below. Patient with microscopic colitis. Did well with Entocort in the past. Now has flare of microscopic colitis. Stool studies are negative for infectious etiology. Recommendation: Cholestyramine 3 times a day packet. Bentyl 20 mg 4 times a day. Uceris or entocort 9 mg daily
[2016-05-17] MEDS ORDERED: *HR* Phytonadione 5 MG TABLET PO ONE (13:19)
[2016-05-17] MEDS ORDERED: 0.9 % Sodium Chloride 250 ML ONE ×2 (16:09→19:59)
[2016-05-17] MEDS: Acetaminophen 325 MG TABLET PO PRN (16:15)
[2016-05-17] MEDS: *HR* HYDROcodone/Acet 5/325 mg TABLET PO PRN (20:29)
[2016-05-17] MEDS: traZODone 50 MG TABLET PO SCH (21:52)
[2016-05-18] MEDS: MetroNIDAZOLE 500 MG/100 ML 500 MG/100 ML BAG IVPB SCH ×4 (00:58→17:16)
[2016-05-18 05:05] LABS: Hematocrit 26.2 % (35.3-44.9); Mean Corpuscular HGB Conc 30.5 g/dL (31.6-35.5); Mean Corpuscular Hemoglobin 25.2 pg (28.0-33.3); Mean Corpuscular Volume 82.6 fL (83.0-100.0); Mean Platelet Volume 9.9 fL (9.4-12.4); Platelet Count 366 K/mcL (140-400); Red Blood Count 3.17 M/mcL (3.82-4.97); Red Cell Distribution Width 13.8 % (11.5-14.5)
[2016-05-18 05:11] LABS: INR 1.4; Prothrombin Time 15.4 Seconds (9.4-12.1)
[2016-05-18 05:14] LABS: Activated Partial Thrombo Time 30.7 Seconds (26.0-36.0)
[2016-05-18 05:34] LABS: BUN/Creatinine Ratio 11 (6-26); Blood Urea Nitrogen 6 mg/dL (7-20); Carbon Dioxide 27 mEq/L (19-29); Chloride 108 mEq/L (98-109); Glucose 109 mg/dL (70-99); Magnesium 1.8 mg/dL (1.6-2.6); Osmolality,Calculated 290 (280-300); Phosphorous 3.7 mg/dL (2.3-4.7); Potassium 3.5 mEq/L (3.5-4.5); Sodium 141 mEq/L (136-145); eGFR For African Americans > 60 (> 60); eGFR For Non-African Americans > 60 (> 60)
--- NOTE | 2016-05-18 06:16 | Electrocardiograph Report ---
[address] [address] Test Date: 2016-05-15 Pat Name: Liberty Rosales Department: 105 Room: 3B Gender: F Silk Examiner: : 1955 Requested By: Bryan Rosales Order Number: [id number] Reading MD: Angel Luis Corado MD Measurements Intervals [place] Rate: 72 P: 49 CT: 156 QRS: 0 QRSD: 95 T: 32 QT: 404 QTc: 428 Interpretive Statements SINUS RHYTHM Electronically Signed On 05-18-2016 6:14:21 EST by Angel Luis Corado MD
[2016-05-18] MEDS: 0.9 % Sodium Chloride 1,000 ML IVC SCH (06:23)
[2016-05-18] MEDS: Pantoprazole 40 MG VIAL IVP SCH ×2 (06:23→17:15)
[2016-05-18] MEDS: (Dexlansoprazole [Dexilant] 60 MG) PO SCH (09:08)
[2016-05-18] MEDS: Cholestyramine 4 GM POWD.PACK PO SCH ×3 (09:21→16:32)
[2016-05-18] MEDS: Levothyroxine 25 MCG TABLET PO SCH (09:21)
[2016-05-18] MEDS: Pregabalin 75 MG CAPSULE PO SCH ×2 (09:21→20:06)
[2016-05-18] MEDS: Loratadine 10 MG TABLET PO SCH (09:21)
[2016-05-18] MEDS: clonazePAM 0.5 MG TABLET PO SCH (09:21)
[2016-05-18] MEDS: Acetaminophen 325 MG TABLET PO PRN (11:51)
--- NOTE | 2016-05-18 12:05 | Carotid Imaging Report ---
Carotid Duplex Patient Name:Liberty Rosales Order Number:[id number] Procedure Date:05/16/2016 Date:1955ge:61 yrs Gender:Female Rt.BP:106 / 65 mmHgHeart Rate: Location:[facility] Room #: [facility] Release Specialist:GREER VanessaT, [facility] Referring MD:Sachi Boone DO brooch and bracelet maker:None Reading MD:Elroy Huber MD Primary Indications:chest pain Risk Factors Yes/No Hypertension Yes Hypercholesterolemia Yes Smoking Current No Impressions: The right internal carotid artery has a 40-59% stenosis. The left internal carotid artery has a 60-79% stenosis. Recommendations: Risk factor reduction. Further evaluation recommended if clinically indicated. Follow-up carotid duplex in 1 year. Findings Carotid Duplex: Right: The right proximal common carotid artery has a PSV of 107 cm/s and a EDV of 21 cm/s. The right mid common carotid artery has a PSV of 101 cm/s and a EDV of 26 cm/s. The right distal common carotid artery has a PSV of 86 cm/s and a EDV of 26 cm/s. The right bifurcation has a PSV of 107 cm/s and a EDV of 27 cm/s. There is 40-59% stenosis in the right proximal internal carotid artery with a PSV of 128 cm/s and a EDV of 33 cm/s. There is smooth heterogeneous plaque. The right mid internal carotid artery has a PSV of 123 cm/s and a EDV of 27 cm/s. The right distal internal carotid artery has a PSV of 143 cm/s and a EDV of 38 cm/s. The right eca has a PSV of 101 cm/s and a EDV of 14 cm/s. The right vertebral artery has a PSV of 44 cm/s and a EDV of 13 cm/s. Left: The left proximal common carotid artery has a PSV of 94 cm/s and a EDV of 16 cm/s. The left mid common carotid artery has a PSV of 107 cm/s and a EDV of 19 cm/s. The left distal common carotid artery has a PSV of 107 cm/s and a EDV of 24 cm/s. The left bifurcation has a PSV of 100 cm/s and a EDV of 24 cm/s. There is 60-79% stenosis in the left proximal internal carotid artery with a PSV of 194 cm/s and a EDV of 52 cm/s. There is smooth homogeneous plaque. The left mid internal carotid artery has a PSV of 164 cm/s and a EDV of 52 cm/s. The left distal internal carotid artery has a PSV of 106 cm/s and a EDV of 33 cm/s. The left eca has a PSV of 109 cm/s and a EDV of 16 cm/s. The left vertebral artery has a PSV of 43 cm/s and a EDV of 12 cm/s. Carotid Results Right PSV EDV Assessment Proximal CCA 107 21 Normal Mid CCA 101 26 Normal Distal CCA 86 26 Normal Bifurcation 107 27 Non Stenotic Plaque Proximal ICA 128 33 40-59% stenosis Mid ICA 123 27 Post stenotic flow Distal ICA 143 38 Post stenotic flow ECA 101 14 Normal Vertebral Artery 44 13 Normal Left PSV EDV Assessment Proximal CCA 94 16 Normal Mid CCA 107 19 Normal Distal CCA 107 24 Normal Bifurcation 100 24 Normal Proximal ICA 194 52 60-79% stenosis Mid ICA 164 52 Post stenotic flow Distal ICA 106 33 Normal ECA 109 16 Normal Vertebral Artery 43 12 Normal Ratio's Right ICA/CCA Ratio: 1.42 Left ICA/CCA Ratio: 1.81 Updated by Elroy Huber MD on 05/18/2016 12:01:13 PM electronically signed on 05/18/2016 12:01:25 PM with status of Final
--- NOTE | 2016-05-18 16:48 | Internal Med Progress Note ---
<Elroy Weaver - Last Filed: 05/18/16 16:52> Date of Encounter: 05/18/16 Time of Encounter: 16:44 - Assessment and plan (1) Colitis Current Visit: Yes Status: Acute Assessment and plan: CT findings suggestive of colitis of the cecum and proximal colon. Etiology unclear. Infectious versus inflammatory? She is febrile so we will start her on Cipro and flagyl follow up with stool studies. Consult GI. She has + hemmoccult but no active bleeding since admssion. If this develops we will reverse her INR. currently she is hemodynamically. stable. 05/17/16 Patient remains hemodynamically stable. GI infectious panel was negative. She continues to have loose bloody stools. Possibly from enteritis? or diverticulosis? we will reverse her INR as she continues to have blood in her stool and Hg is trending down. Per patients report she is on Coumadin for Afib ad also has history of a provoked PE many years ago. can resume after bleeding has resolved. GI was consulted. Appreciate Dr. Martinez recommendations. 05/18/16 patient improving. She has decreased stools. Ucera and entocort not on formulary. I discussed with pharmacy and will not be able to get for her during this hospitalization. Will place the patient on Solumedrol. continue bentylm cholestyramine, cipro, flagyl. will plan for Discharge in AM if she continues to improve. (2) Atypical chest pain Current Visit: Yes Status: Acute Assessment and plan: currently chest pain free. Trononins are negative. We will follow up with stress test results. 05/17/16 nuclear stress test negative for ischemia. However this was a poor quality test. She had atypical symptoms. Troponins were negative X 3 so highly unlikely that this was ACS. This is in the setting of acute blood loss anemia. will continue to monitor. May consider repeat testing as an outpatient. 05/18/16 No further episodes of chest pain. Will follow up with PCP. (3) Lymphocytic colitis Current Visit: Yes Status: Acute Assessment and plan: per biopsy findings in July 2015 will DC on Entocort per GIs recommendations (4) Anemia Current Visit: Yes Status: Acute Assessment and plan: likley from GI losses. stable continue to trend. will plan to start back on coumadin tomorrow if Hg stable and no further bleeding. Qualifiers: Qualified Code(s): D64.9 - Anemia, unspecified (5) Hypomagnesemia Current Visit: Yes Status: Acute Assessment and plan: resolved (6) Hypoalbuminemia Current Visit: Yes Status: Acute Assessment and plan: likely from chronic diarrhea. nutrition consulted. (7) Coagulopathy Current Visit: Yes Status: Acute Assessment and plan: resolved (8) Atrial fibrillation Current Visit: Yes Status: Acute Assessment and plan: curently rate controlled. plan to start back coumadin tomorrow if Hg stable. Qualifiers: Qualified Code(s): I48.91 - Unspecified atrial fibrillation (9) DVT prophylaxis Current Visit: Yes Status: Acute Assessment and plan: EPCDs - Subjective Interval history: No major everns overnight. Patient reports on going diarrhea but states that it has lessoned. She reports 2-3 episodes over night. She denies any further bloody stools. She denies chest pain, syncope , or presyncope. She has no further complaints or concerns at this time. - Constitutional Vitals: Temp Pulse Resp BP Pulse Ox 98.6 F 72 16 105/66 96 05/18/16 16:28 05/18/16 16:28 05/18/16 16:28 05/18/16 16:28 05/18/16 16:28 General appearance: Present: A&O X 3, no acute distress, answers questions appropriately - Head Head exam: Present: atraumatic, normocephalic - Eye Eye exam: Present: PERRL, conjuntiva pink, sclera anicteric Pupils: Present: PERRL - Neck Neck exam general surgery: Present: supple, trachea midline. Absent: lymphadenopathy - Respiratory Respiratory exam: Present: CTAB. Absent: accessory muscle use, rales, rhonchi, wheezes - Cardiovascular Cardiovascular exam: Present: RRR, +S1, +S2. Absent: diastolic murmur, gallop, rubs, systolic murmur - GI/Abdominal GI/Abdominal exam: Present: normal bowel sounds, soft, no peritoneal signs. Absent: distended, tenderness - Extremities Exam Extremities exam: Present: warm, radial pulses palpable and symetrical. Absent : calf tenderness, cyanotic, pedal edema - Skin Skin exam: Present: dry, intact Internal Medicine: Result - Labs CBC & Chem 7: 05/18/16 04:53 05/18/16 04:53 Labs: Short CBC 05/18/16 Range/Units 04:53 WBC 3.8 L (4.3-11.1) K/mcL Hgb 8.0 L (11.5-15.4) g/dL Hct 26.2 L (35.3-44.9) % Plt Count 366 (140-400) K/mcL BMP 05/18/16 04:53 Sodium 141 Potassium 3.5 Chloride 108 Carbon Dioxide 27 BUN 6 L Creatinine 0.53 L Glucose 109 H Calcium 8.0 L - ABG Interpretation ABG results: PT/INR, D-dimer PT 15.4 Seconds (9.4-12.1) H 05/18/16 04:53 - VTE Reasons for not Prescribing Prophylaxis: Medical contraindication Documentation of Mechanical Device: Intermittent pneumatic compression device Consult Discharge Plan - Plan Referrals: Lynda Messer CASH ANALYST [Primary Care Provider] - <Ed Castellanos - Last Filed: 05/18/16 17:00> Date of Encounter: 05/18/16 - Constitutional Vitals: Temp Pulse Resp BP Pulse Ox 98.6 F 72 16 105/66 96 05/18/16 16:28 05/18/16 16:28 05/18/16 16:28 05/18/16 16:28 05/18/16 16:28 Internal Medicine: Result - Labs CBC & Chem 7: 05/18/16 04:53 05/18/16 04:53 Labs: Short CBC 05/18/16 Range/Units 04:53 WBC 3.8 L (4.3-11.1) K/mcL Hgb 8.0 L (11.5-15.4) g/dL Hct 26.2 L (35.3-44.9) % Plt Count 366 (140-400) K/mcL BMP 05/18/16 04:53 Sodium 141 Potassium 3.5 Chloride 108 Carbon Dioxide 27 BUN 6 L Creatinine 0.53 L Glucose 109 H Calcium 8.0 L - ABG Interpretation ABG results: PT/INR, D-dimer PT 15.4 Seconds (9.4-12.1) H 05/18/16 04:53 - Attending Attestation I examined this patient and my medical decision-making was reviewed with the TRAVELING ACCOUNTANT/PA/Advanced Practice Nurse/Resident Physician. I agree with the documented findings, disposition and treatment plan as described except to the extent set forth below. I agree with the physical examination findings, assessment and movement Dr. Elroy Weaver. Patient with colitis, will continue with antibiotics. Follow GI input.
[2016-05-18] MEDS: MethylPREDNISolone 40 MG/ML VIAL IVP SCH (17:16)
[2016-05-18] MEDS: traZODone 50 MG TABLET PO SCH (20:05)
[2016-05-18] MEDS: *HR* HYDROcodone/Acet 5/325 mg TABLET PO PRN (20:06)
[2016-05-19] MEDS: Acetaminophen 325 MG TABLET PO PRN (01:15)
[2016-05-19] MEDS: MetroNIDAZOLE 500 MG/100 ML 500 MG/100 ML BAG IVPB SCH ×2 (01:15→10:06)
[2016-05-19 04:52] LABS: Hematocrit 27.7 % (35.3-44.9); Hemoglobin 8.7 g/dL (11.5-15.4); Mean Corpuscular HGB Conc 31.4 g/dL (31.6-35.5); Mean Corpuscular Hemoglobin 25.7 pg (28.0-33.3); Mean Corpuscular Volume 81.7 fL (83.0-100.0); Mean Platelet Volume 10.2 fL (9.4-12.4); Platelet Count 426 K/mcL (140-400); Red Blood Count 3.39 M/mcL (3.82-4.97); Red Cell Distribution Width 13.7 % (11.5-14.5)
[2016-05-19 04:56] LABS: INR 1.2; Prothrombin Time 13.3 Seconds (9.4-12.1)
[2016-05-19 04:59] LABS: Activated Partial Thrombo Time 28.3 Seconds (26.0-36.0)
[2016-05-19 05:10] LABS: BUN/Creatinine Ratio 13 (6-26); Blood Urea Nitrogen 7 mg/dL (7-20); Calcium 8.6 mg/dL (8.6-10.8); Carbon Dioxide 24 mEq/L (19-29); Chloride 104 mEq/L (98-109); Glucose 145 mg/dL (70-99); Magnesium 1.4 mg/dL (1.6-2.6); Osmolality,Calculated 283 (280-300); Phosphorous 3.6 mg/dL (2.3-4.7); Sodium 136 mEq/L (136-145); eGFR For African Americans > 60 (> 60); eGFR For Non-African Americans > 60 (> 60)
[2016-05-19 05:26] LABS: Lymphocytes # 0.8 K/mcL (0.6-4.6); Monocytes # 0.3 K/mcL (0.0-1.3); Neutrophils # 6.5 K/mcL (1.6-8.9)
[2016-05-19 05:27] LABS: Anisocytosis 1+ (Not Present); Microcytosis Present (Not Present); Platelet Estimate Increased (Normal); Reactive Lymphocytes Present (Not Present)
[2016-05-19] MEDS ORDERED: Magnesium Sulfate 2 GM in D5% in Water 100 ML IVPB ONE (06:22)
--- NOTE | 2016-05-19 06:31 | Discharge Summary ---
<Elroy Weaver - Last Filed: 05/19/16 08:39> Date of Encounter: 05/19/16 Time of Encounter: 06:23 - Discharge Diagnosis (1) Colitis Priority: Primary Status: Acute Comments: lymphocytic (2) Atypical chest pain Priority: Secondary Status: Acute (3) Lymphocytic colitis Priority: Primary Status: Acute (4) Anemia Priority: Secondary Status: Acute Comments: acute blood loss resolved with Hg trending up Qualifiers: Qualified Code(s): D64.9 - Anemia, unspecified (5) Hypomagnesemia Priority: Secondary Status: Acute Comments: repleted prior to discharge (6) Hypoalbuminemia Priority: Secondary Status: Acute (7) Coagulopathy Priority: Secondary Status: Acute Comments: secondary to coumadin. resolved (8) Atrial fibrillation Priority: Secondary Status: Acute Comments: will resume coumadin Qualifiers: Atrial fibrillation type: paroxysmal Qualified Code(s): I48.0 - Paroxysmal atrial fibrillation - Discharge Medications Prescriptions: Budesonide [Entocort EC] 9 mg PO DAILY 30 Days Cholestyramine 4 gm PO TIDAC 30 Days Ciprofloxacin [Cipro] 500 mg PO BID 5 Days Dicyclomine [Bentyl] 20 mg PO QID 30 Days MetroNIDAZOLE [Flagyl] 500 mg PO TID 5 Days Home Medications: ClonazePAM [Klonopin] 0.5 mg PO HS 05/15/16 [History] Cyclobenzaprine [Flexeril] 10 mg PO TID 05/15/16 [History] Dexlansoprazole [Dexilant] 60 mg PO DAILY 05/15/16 [History] Diclofenac Sodium [Voltaren] 75 mg PO BID 05/15/16 [History] Duloxetine HCl [Cymbalta] 60 mg PO BID 05/15/16 [History] Levothyroxine [Synthroid] 75 mcg PO DAILY 05/15/16 [History] Loratadine [Claritin] 10 mg PO DAILY 05/15/16 [History] Meclizine [Antivert] 25 mg PO TID 05/15/16 [History] Pregabalin [Lyrica] 150 mg PO BID 05/15/16 [History] Simvastatin [Zocor] 40 mg PO DAILY 05/15/16 [History] TraZODone 100 mg PO HS 05/15/16 [History] Warfarin [Coumadin] 5 mg PO DAILY 05/15/16 [History] Albuterol Sulfate [Proair Hfa] 2 puff IH Q4H PRN 05/16/16 [History] Aspirin [Lo-Dose Aspirin EC] 81 mg PO DAILY 05/16/16 [History] Budesonide/Formoterol 160/4.5 [Symbicort 160/4.5] 2 puff IH BID 05/16/16 [ History] Diphenoxylate/Atropine [Lomotil 2.5 mg/0.025 mg] 2 tab PO QID 05/16/16 [History] Losartan [Cozaar] 25 mg PO DAILY 05/16/16 [History] Ondansetron HCl [Zofran] 4 - 8 mg PO Q4-6H PRN 05/16/16 [History] Oxygen 2 l .ROUTE AD 05/16/16 [History] Budesonide [Entocort EC] 9 mg PO DAILY 30 Days 05/19/16 [Rx] Cholestyramine 4 gm PO TIDAC 30 Days 05/19/16 [Rx] Ciprofloxacin [Cipro] 500 mg PO BID 5 Days 05/19/16 [Rx] Dicyclomine [Bentyl] 20 mg PO QID 30 Days 05/19/16 [Rx] MetroNIDAZOLE [Flagyl] 500 mg PO TID 5 Days 05/19/16 [Rx] Allergies/Adverse Reactions: Allergies naproxen [From Naprosyn] Adverse Reaction (Verified 11/29/14 12:29) Vomiting Penicillins Adverse Reaction (Verified 11/29/14 12:29) Seizure Date of admission: 05/15/16 23:40 Primary care physician: Lynda Messer CNP Consults: 05/16/16 13:55 Consult to Gastroenterology [CONS] Routine Consulting Provider: [facility] [place] Reason for Consult: colitis, lower GI bleed Call Completed: Yes Discharging clinician: Elroy Weaver Anticipated date of discharge: 05/19/16 - Patient Status Disposition: Home, Self-Care Condition: Good Functional capacity at discharge: independent ambulation Overall status at discharge: patient is progressing back to baseline - Ambulatory Orders Ambulatory Orders: Prothrombin Time INR [COAG] Time Frame: 3 Days, Location: Any lab - Discharge Instructions Instructions: Ciprofloxacin (By mouth), Dicyclomine (By mouth), Metronidazole ( By mouth), Syncope (GEN), Hypomagnesemia (DC), Anemia (DC), Hyperlipidemia (GEN ), Heart Healthy Diet, An/Ssn 2 4 Operator (GEN) Follow Up With: Lynda Messer CNP [Primary Care Provider] - 05/26/16 1:00 pm - Diet and Activity Activity: increase activity as tolerated Diet: advance to your usual diet Hospital course: Ms. Rosales is a 61 year old female with a history of chronic diarrhea from Lymphocytic colitis. She was previoiusly on entocort until her pharmacy " shut down". She was admitted to [facility] on 05/15/16 and was found to have evidence of colitis in the cecum and proximal colon on CT scan. She was treated with antibiotics fluids and steroids. GI infectious panel did not show any specific pathogens. We aolso consulted with Dr. Yaneth topete membership assistant. She had an elevated INR on admission. this was reversed as she was having bloody stools and her Hg was trending down. this has since resolved. Her diarrhea has resolved although she still has loose stools. She is stable to be discharged today. We will discharge her with an Rx for entocort, bentyl, cholestyramine, and cipro/flagyl to complete a 7 day course. she will resume her coumadin and we will order a repeat INR to be sent to her PCP. she also had some complaints of chest pain. However this was atypical/ palpitations. She di have some electrolyte abnormalities that were corrected. she is now asymptomatic. She did have a nuclear stress test that was negative for ischemia but also a poor study quality. May consider repeat testing in the future if she should become symptomatic. She has voiced back understanding and agreement to the above plan. - Time Spent with Patient Total time spent providing and/or coordinating discharge services: Greater than 30 minutes (approximately 33 minutes was taken to discharge this patient.) - Constitutional Vitals: Temp Pulse Resp BP Pulse Ox 98.0 F 68 12 117/67 92 L 05/19/16 03:34 05/19/16 03:34 05/19/16 03:34 05/19/16 03:34 05/19/16 03:34 General appearance: Present: A&O X 3, no acute distress, answers questions appropriately - Head Head exam: Present: atraumatic, normocephalic - Eye Eye exam: Present: PERRL, conjuntiva pink, sclera anicteric Pupils: Present: PERRL - Neck Neck exam general surgery: Present: supple, trachea midline. Absent: lymphadenopathy - Respiratory Respiratory exam: Present: CTAB. Absent: accessory muscle use, rales, rhonchi, wheezes - Cardiovascular Cardiovascular exam: Present: RRR, +S1, +S2. Absent: diastolic murmur, gallop, rubs, systolic murmur - GI/Abdominal GI/Abdominal exam: Present: normal bowel sounds, soft, no peritoneal signs. Absent: distended, tenderness Additional comments: obese - Extremities Exam Extremities exam: Present: warm, radial pulses palpable and symetrical. Absent : calf tenderness, cyanotic, pedal edema - Neurological Exam Neurological exam: Present: oriented X3 - Skin Skin exam: Present: dry, intact - VTE Reasons for not Prescribing Prophylaxis: Medical contraindication Documentation of Mechanical Device: Intermittent pneumatic compression device <Ed Castellanos - Last Filed: 05/19/16 14:12> Date of Encounter: 05/19/16 Date of admission: 05/15/16 23:40 Primary care physician: Lynda Messer CNP Consults: 05/16/16 13:55 Consult to Gastroenterology [CONS] Routine Consulting Provider: [facility] [place] Reason for Consult: colitis, lower GI bleed Call Completed: Yes Hospital course: Ms. Rosales is a 61 year old female - Time Spent with Patient Total time spent providing and/or coordinating discharge services: - Constitutional Vitals: Temp Pulse Resp BP Pulse Ox 97.5 F L 71 18 158/75 95 05/19/16 07:08 05/19/16 07:08 05/19/16 07:08 05/19/16 07:08 05/19/16 07:08 - Attending Attestation I examined this patient and my medical decision-making was reviewed with the BRICK CHIMNEY BUILDER/PA/Advanced Practice Nurse/Resident Physician. I agree with the documented findings, disposition and treatment plan as described except to the extent set forth below. Colitis, stable, tolerated diet. Continue with GI recommendations. D/C home with po antibiotics.
[2016-05-19 07:09] VITALS: BP 158/75
[2016-05-19] MEDS: Pantoprazole 40 MG VIAL IVP SCH (10:05)
[2016-05-19] MEDS: Cholestyramine 4 GM POWD.PACK PO SCH (10:06)
[2016-05-19] MEDS: (Dexlansoprazole [Dexilant] 60 MG) PO SCH (10:07)
[2016-05-19] MEDS: MethylPREDNISolone 40 MG/ML VIAL IVP SCH (10:07)
[2016-05-19] MEDS: Pregabalin 75 MG CAPSULE PO SCH (10:11)
[2016-05-19] MEDS: Levothyroxine 25 MCG TABLET PO SCH (10:11)
[2016-05-19] MEDS: Loratadine 10 MG TABLET PO SCH (10:11)
[2016-05-19] MEDS: clonazePAM 0.5 MG TABLET PO SCH (10:11)
== END 2016-05-19 11:25 | disposition home or self-care (01) | DRG 392 ==
LOC: EMEROO 14:01 → 3BNU 14:01 → SUATTDRO 23:40
PROVIDERS: ADMIT Registered Nurse; ATTEND Internal Medicine

== ENCOUNTER 2018-12-26 15:43 | Observation (INO) ==
[2018-12-26] MEDS ORDERED: 0.9 % Sodium Chloride 1,000 ML IVC ONE (16:16)
[2018-12-26] MEDS ORDERED: Ondansetron 4 MG/2 ML VIAL IVP ONE (16:16)
[2018-12-26 16:38] LABS: Basophils # 0.1 K/mcL (0.0-0.2); Basophils % 0.9 %; Eosinophils # 0.2 K/mcL (0.0-0.6); Eosinophils % 2.4 %; Immature Granulocytes % 0.6 % (0-4); Lymphocytes % 24.7 %; Mean Corpuscular HGB Conc 31.4 g/dL (31.6-35.5); Mean Corpuscular Hemoglobin 27.3 pg (28.0-33.3); Mean Corpuscular Volume 86.8 fL (83.0-100.0); Mean Platelet Volume 11.3 fL (9.4-12.4); Monocytes # 0.6 K/mcL (0.0-1.3); Monocytes % 7.4 %; Neutrophils # 5.2 K/mcL (1.6-8.9); Platelet Count 267 K/mcL (140-400); Red Blood Count 4.03 M/mcL (3.82-4.97); Red Cell Distribution Width 15.7 % (11.5-14.5); White Blood Count 8.2 K/mcL (4.3-11.1)
[2018-12-26 16:41] LABS: Albumin 4.1 g/dL (3.5-5.7); Albumin/Globulin Ratio 1.6 (1.1-2.2); BUN/Creatinine Ratio 25 (6-26); Bilirubin,Indirect 0.2 mg/dL (0.0-1.2); Bilirubin,Total 0.2 mg/dL (0.3-1.0); Blood Urea Nitrogen 17 mg/dL (8-23); Calcium 9.1 mg/dL (8.6-10.3); Carbon Dioxide 29 mEq/L (23-29); Chloride 104 mEq/L (98-107); Globulin 2.5 g/dL (2.4-3.5); Glucose 93 mg/dL (70-105); Osmolality,Calculated 283 (280-300); Potassium 4.2 mEq/L (3.5-5.1); Sodium 136 mEq/L (136-145); Total Protein 6.6 g/dL (6.4-8.9); eGFR For African Americans > 60 (> 60); eGFR For Non-African Americans > 60 (> 60)
[2018-12-26 16:42] LABS: Troponin I < 0.03 ng/mL (< 0.04)
[2018-12-26 16:54] LABS: Thyroid Stimulating Hormone 2.553 mcIU/mL (0.340-5.600)
[2018-12-26] MEDS ORDERED: Aspirin 81 MG TAB.CHEW PO ONE (17:59)
[2018-12-26 19:34] LABS: Bilirubin,Urine Negative (Negative); Blood,Urine Negative (Negative); Clarity,Urine Clear (Clear); Color,Urine Yellow (Yellow); Glucose,Urine (UA) Normal (Normal); Ketones,Urine Negative (Negative); Leukocyte Esterase,Urine Small (Negative); Nitrite,Urine Negative (Negative); Protein,Urine Negative (Neg-Trace); Specific Gravity,Urine 1.014 (1.010-1.025); Urobilinogen,Urine Normal (Normal)
[2018-12-26 19:35] LABS: Bacteria,Urine None Seen per hpf (None-Few); Hyaline Casts,Urine None Seen per lpf (None-Few); Squamous Epithelial Cell,Urine Few per lpf (None-Few)
[2018-12-27] MEDS ORDERED: Naloxone 0.4 MG/ML INJ IVP PRN (00:21)
[2018-12-27] MEDS ORDERED: clonazePAM 0.5 MG TABLET PO PRN (00:31)
[2018-12-27 01:30] LABS: Basophils # 0.1 K/mcL (0.0-0.2); Basophils % 0.8 %; Eosinophils # 0.2 K/mcL (0.0-0.6); Eosinophils % 1.9 %; Hematocrit 31.6 % (35.3-44.9); Immature Granulocytes % 0.5 % (0-4); Lymphocytes # 1.8 K/mcL (0.6-4.6); Lymphocytes % 23.4 %; Mean Corpuscular HGB Conc 31.6 g/dL (31.6-35.5); Mean Corpuscular Hemoglobin 27.2 pg (28.0-33.3); Mean Corpuscular Volume 86.1 fL (83.0-100.0); Mean Platelet Volume 11.5 fL (9.4-12.4); Monocytes # 0.6 K/mcL (0.0-1.3); Monocytes % 7.5 %; Neutrophils # 5.1 K/mcL (1.6-8.9); Platelet Count 216 K/mcL (140-400); Red Blood Count 3.67 M/mcL (3.82-4.97); Red Cell Distribution Width 15.6 % (11.5-14.5); Segmented Neutrophils % 65.9 %; White Blood Count 7.7 K/mcL (4.3-11.1)
[2018-12-27] MEDS: traMADol 50 MG TABLET PO PRN ×2 (01:33→10:37)
[2018-12-27] MEDS: traZODone 50 MG TABLET PO SCH ×2 (01:33→21:18)
[2018-12-27 01:49] LABS: BUN/Creatinine Ratio 18 (6-26); Blood Urea Nitrogen 14 mg/dL (8-23); Calcium 8.5 mg/dL (8.6-10.3); Carbon Dioxide 26 mEq/L (23-29); Chloride 105 mEq/L (98-107); Glucose 149 mg/dL (70-105); Osmolality,Calculated 289 (280-300); Potassium 3.7 mEq/L (3.5-5.1); Sodium 138 mEq/L (136-145); eGFR For African Americans > 60 (> 60); eGFR For Non-African Americans > 60 (> 60)
[2018-12-27] MEDS: Apixaban 5 MG TABLET PO SCH ×2 (08:35→21:18)
[2018-12-27] MEDS ORDERED: Diclofenac Sodium (DR) 75 MG TABLET.DR PO SCH (09:00)
[2018-12-27] MEDS ORDERED: *HR* OxyCODONE/APAP 5/325 TABLET PO PRN (13:48)
[2018-12-27] MEDS ORDERED: Ondansetron 4 MG/2 ML VIAL IVP ONE (19:31)
[2018-12-27] MEDS ORDERED: *HR* Promethazine 25 MG/ML VIAL IVP ONE (22:18)
[2018-12-28] MEDS ORDERED: Regadenoson 0.4 MG/5 ML SYRINGE IVP ONE (06:30)
[2018-12-28] MEDS ORDERED: Ondansetron 4 MG/2 ML VIAL IVP ONE (08:40)
[2018-12-28] MEDS: Apixaban 5 MG TABLET PO SCH (09:34)
[2018-12-28 12:09] VITALS: BP 151/78
== END 2018-12-28 15:51 | disposition home or self-care (01) ==
LOC: EMEROOARM 15:43 → 3BNU 15:43 → SUATTDRO 19:30 → 3BNU 20:04
PROVIDERS: ADMIT Pharmacist; ATTEND Family Medicine

== ENCOUNTER 2021-11-11 11:37 | Inpatient (IN) ==
[2021-11-11] MEDS ORDERED: *HR* HYDROmorphone (PF) 1 MG/ML SYRINGE IVP ONE ×2 (12:18→23:46)
[2021-11-11 13:00] LABS: Eosinophils # 0.2 K/mcL (0.0-0.6); Eosinophils % 4.5 %; Hematocrit 36.7 % (35.3-44.9); Hemoglobin 11.7 g/dL (11.5-15.4); Immature Granulocytes % 0.3 % (0-4); Lymphocytes # 1.2 K/mcL (0.6-4.6); Lymphocytes % 30.2 %; Mean Corpuscular HGB Conc 31.9 g/dL (31.6-35.5); Mean Corpuscular Hemoglobin 29.8 pg (28.0-33.3); Mean Corpuscular Volume 93.4 fL (83.0-100.0); Mean Platelet Volume 10.8 fL (9.4-12.4); Monocytes # 0.4 K/mcL (0.0-1.3); Monocytes % 8.8 %; Neutrophils # 2.2 K/mcL (1.6-8.9); Platelet Count 177 K/mcL (140-400); Red Blood Count 3.93 M/mcL (3.82-4.97); Red Cell Distribution Width 13.3 % (11.5-14.5); Segmented Neutrophils % 55.2 %
[2021-11-11 13:10] LABS: INR 1.2; Prothrombin Time 13.2 Seconds (9.4-12.1)
[2021-11-11] MEDS ORDERED: Ondansetron 4 MG/2 ML VIAL IVP PRN (13:11)
[2021-11-11] MEDS ORDERED: Naloxone 0.4 MG/ML INJ IVP PRN (13:11)
[2021-11-11] MEDS ORDERED: Acetaminophen 325 MG TABLET PO PRN (13:11)
[2021-11-11 13:23] LABS: BUN/Creatinine Ratio 22 (6-26); Blood Urea Nitrogen 13 mg/dL (8-23); Calcium 8.7 mg/dL (8.6-10.3); Carbon Dioxide 27 mEq/L (23-29); Chloride 106 mEq/L (98-107); Glucose 86 mg/dL (70-105); Osmolality,Calculated 287 (280-300); Potassium 3.6 mEq/L (3.5-5.1); Sodium 139 mEq/L (136-145)
[2021-11-11] MEDS: Heparin 25,000UNIT/250ML 1/2NS 25,000 UNIT/250 ML IV.SOLN IVC SCH (16:06)
[2021-11-11] MEDS ORDERED: Heparin 25,000UNIT/250ML 1/2NS 25,000 UNIT/250 ML IV.SOLN IVC SCH (21:00)
[2021-11-11] MEDS ORDERED: *HR* Heparin 5,000 UNIT/ML VIAL IVP PRN ×2 (21:00)
[2021-11-11] MEDS ORDERED: *HR* Heparin 5,000 UNIT/ML VIAL IVP ONE (21:00)
[2021-11-12 04:53] LABS: Hematocrit 33.8 % (35.3-44.9); Mean Corpuscular HGB Conc 32.5 g/dL (31.6-35.5); Mean Corpuscular Hemoglobin 30.5 pg (28.0-33.3); Mean Corpuscular Volume 93.6 fL (83.0-100.0); Mean Platelet Volume 10.6 fL (9.4-12.4); Platelet Count 151 K/mcL (140-400); Red Blood Count 3.61 M/mcL (3.82-4.97); Red Cell Distribution Width 13.2 % (11.5-14.5); White Blood Count 3.3 K/mcL (4.3-11.1)
[2021-11-12] MEDS ORDERED: clonazePAM 0.5 MG TABLET PO ONE (05:13)
[2021-11-12 05:14] LABS: BUN/Creatinine Ratio 23 (6-26); Blood Urea Nitrogen 12 mg/dL (8-23); Calcium 8.5 mg/dL (8.6-10.3); Carbon Dioxide 30 mEq/L (23-29); Chloride 106 mEq/L (98-107); Glucose 99 mg/dL (70-105); Magnesium 1.8 mg/dL (1.6-2.6); Osmolality,Calculated 290 (280-300); Potassium 3.8 mEq/L (3.5-5.1); Sodium 140 mEq/L (136-145)
[2021-11-12] MEDS: *HR* OxyCODONE/APAP 5/325 TABLET PO PRN ×2 (10:22→16:29)
[2021-11-12] MEDS ORDERED: *HR* HYDROmorphone 2 MG/ML SYRINGE IVP PRN (10:59)
[2021-11-12] MEDS: lisinopriL 10 MG TABLET PO SCH (12:05)
[2021-11-12] MEDS: Heparin 25,000UNIT/250ML 1/2NS 25,000 UNIT/250 ML IV.SOLN IVC SCH (16:29)
[2021-11-12] MEDS ORDERED: Metoclopramide 10 MG/2 ML VIAL IVP ONE (20:04)
[2021-11-12] MEDS ORDERED: traZODone 50 MG TABLET PO SCH (21:00)
[2021-11-12] MEDS: Pregabalin 75 MG CAPSULE PO SCH (21:22)
[2021-11-12] MEDS: clonazePAM 0.5 MG TABLET PO SCH (21:23)
[2021-11-12] MEDS: Nystatin Cream 15 GM TUBE TP SCH (22:53)
[2021-11-13 05:01] LABS: BUN/Creatinine Ratio 16 (6-26); Blood Urea Nitrogen 8 mg/dL (8-23); Calcium 8.7 mg/dL (8.6-10.3); Carbon Dioxide 28 mEq/L (23-29); Chloride 105 mEq/L (98-107); Glucose 106 mg/dL (70-105); Magnesium 1.6 mg/dL (1.6-2.6); Osmolality,Calculated 287 (280-300); Potassium 3.3 mEq/L (3.5-5.1); Sodium 139 mEq/L (136-145)
[2021-11-13 05:17] LABS: Basophils # 0.1 K/mcL (0.0-0.2); Basophils % 1.3 %; Eosinophils # 0.1 K/mcL (0.0-0.6); Eosinophils % 1.6 %; Hematocrit 37.7 % (35.3-44.9); Hemoglobin 12.1 g/dL (11.5-15.4); Lymphocytes # 1.2 K/mcL (0.6-4.6); Mean Corpuscular HGB Conc 32.1 g/dL (31.6-35.5); Mean Corpuscular Hemoglobin 29.2 pg (28.0-33.3); Mean Corpuscular Volume 90.8 fL (83.0-100.0); Mean Platelet Volume 10.6 fL (9.4-12.4); Monocytes # 0.4 K/mcL (0.0-1.3); Monocytes % 10.7 %; Platelet Count 168 K/mcL (140-400); Red Blood Count 4.15 M/mcL (3.82-4.97); Red Cell Distribution Width 12.8 % (11.5-14.5); Segmented Neutrophils % 53.4 %; White Blood Count 3.7 K/mcL (4.3-11.1)
[2021-11-13] MEDS: Pregabalin 75 MG CAPSULE PO SCH ×2 (08:37→22:03)
[2021-11-13] MEDS: lisinopriL 10 MG TABLET PO SCH (08:38)
[2021-11-13] MEDS ORDERED: Multivit/Ca/Min/Fe/FA 1 TAB TABLET PO SCH (09:00)
[2021-11-13] MEDS ORDERED: Loratadine 10 MG TABLET PO SCH (09:00)
[2021-11-13] MEDS ORDERED: Cholecalciferol (D-3) 1,000 UNIT (25MCG) TABLET PO SCH (09:00)
[2021-11-13] MEDS: clonazePAM 0.5 MG TABLET PO SCH ×2 (09:09→22:04)
[2021-11-13] MEDS: Nystatin Cream 15 GM TUBE TP SCH ×2 (09:09→22:05)
[2021-11-13] MEDS ORDERED: *HR* FentaNYL (PF) 100 MCG/2 ML VIAL IVP PRN (10:48)
[2021-11-13] MEDS ORDERED: Albuterol 2.5 MG/3 ML NEBULIZER IH PRN (10:48)
[2021-11-13] MEDS ORDERED: *HR* OxyCODONE Immed Rel 5 MG TABLET PO PRN (10:48)
[2021-11-13] MEDS ORDERED: Acetaminophen IV 1,000 MG/100 ML BAG IVPB ONE (12:45)
[2021-11-13 13:35] LABS: INR 1.1
[2021-11-13 13:37] LABS: Activated Partial Thrombo Time 31.1 Seconds (26.0-36.0)
[2021-11-13] MEDS ORDERED: Heparin 1,000 UNITS/500 mL 500 ML ONE (14:07)
[2021-11-13] MEDS ORDERED: *HR* Midazolam HCl 2 MG/2 ML VIAL ONE (14:16)
[2021-11-13] MEDS ORDERED: *HR* FentaNYL (PF) 100 MCG/2 ML VIAL ONE ×2 (14:16→16:09)
[2021-11-13] MEDS ORDERED: *HR* Propofol 200 MG/20 ML VIAL IVP ONE (14:16)
[2021-11-13] MEDS ORDERED: *HR* Succinylcholine 200 MG/10 ML VIAL IVP ONE (14:17)
[2021-11-13] MEDS ORDERED: Lidocaine -MPF 2% 5 ML VIAL ONE (14:17)
[2021-11-13] MEDS ORDERED: Ondansetron 4 MG/2 ML VIAL ONE (14:17)
[2021-11-13] MEDS ORDERED: *HR* Remifentanil 2 MG VIAL IVP ONE (14:18)
[2021-11-13] MEDS ORDERED: Bupivacaine/EPI 1:200k 0.25% 50 ML VIAL ONE (14:21)
[2021-11-13] MEDS ORDERED: *HR* Phenylephrine 10 MG/ML VIAL ONE (14:24)
[2021-11-13] MEDS ORDERED: Vancomycin 1,250 MG/262.5 ML IV.SOLN IVPB ONE ×2 (15:06→21:00)
[2021-11-13] MEDS ORDERED: Ringers Solution, Lactated 1,000 ML IVC SCH ×2 (15:15→20:28)
[2021-11-13] MEDS ORDERED: niCARdipine 20 MG/200 ML MLS IVC ONE (17:03)
[2021-11-13] MEDS ORDERED: *HR* HYDROMORPHONE 2 MG/ML VIAL ONE (17:38)
[2021-11-13] MEDS ORDERED: *HR* Labetalol 20 MG/4 ML SYRINGE IVP ONE (19:13)
[2021-11-13] MEDS: *HR* HYDROmorphone PF 0.5 MG/0.5 ML SYRINGE IVP PRN ×2 (19:47→19:55)
[2021-11-13] MEDS ORDERED: Acetaminophen 325 MG TABLET PO PRN (20:28)
[2021-11-13] MEDS ORDERED: Ondansetron 4 MG/2 ML VIAL IVP PRN ×2 (20:28)
[2021-11-13] MEDS ORDERED: Naloxone 0.4 MG/ML INJ IVP PRN (20:28)
[2021-11-13] MEDS: traZODone 50 MG TABLET PO SCH (22:03)
[2021-11-13] MEDS: Heparin 25,000UNIT/250ML 1/2NS 25,000 UNIT/250 ML IV.SOLN IVC SCH (22:38)
[2021-11-14] MEDS: *HR* OxyCODONE Immed Rel 5 MG TABLET PO PRN ×3 (00:15→16:41)
[2021-11-14] MEDS: *HR* HYDROcodone/Acet 5/325 mg TABLET PO PRN ×2 (04:04→22:33)
[2021-11-14] MEDS: clonazePAM 0.5 MG TABLET PO SCH ×2 (08:24→21:00)
[2021-11-14] MEDS: Nystatin Cream 15 GM TUBE TP SCH ×2 (08:24→21:00)
[2021-11-14] MEDS: Loratadine 10 MG TABLET PO SCH (08:25)
[2021-11-14] MEDS: Cholecalciferol (D-3) 1,000 UNIT (25MCG) TABLET PO SCH (08:25)
[2021-11-14] MEDS: Multivit/Ca/Min/Fe/FA 1 TAB TABLET PO SCH (08:25)
[2021-11-14] MEDS: Pregabalin 75 MG CAPSULE PO SCH ×2 (08:25→20:59)
[2021-11-14] MEDS: lisinopriL 10 MG TABLET PO SCH (08:26)
[2021-11-14] MEDS ORDERED: *HR* Heparin 5,000 UNIT/ML VIAL IVP PRN (12:55)
[2021-11-14] MEDS ORDERED: *HR* Heparin 5,000 UNIT/ML VIAL IVP ONE (12:55)
[2021-11-14] MEDS ORDERED: Heparin 25,000UNIT/250ML 1/2NS 25,000 UNIT/250 ML IV.SOLN IVC SCH (13:00)
[2021-11-14 14:06] LABS: Hematocrit 31.6 % (35.3-44.9); Mean Corpuscular HGB Conc 32.6 g/dL (31.6-35.5); Mean Corpuscular Hemoglobin 29.6 pg (28.0-33.3); Mean Corpuscular Volume 90.8 fL (83.0-100.0); Mean Platelet Volume 11.3 fL (9.4-12.4); Platelet Count 149 K/mcL (140-400); Red Blood Count 3.48 M/mcL (3.82-4.97); Red Cell Distribution Width 12.8 % (11.5-14.5); White Blood Count 5.3 K/mcL (4.3-11.1)
[2021-11-14 14:25] LABS: Hemoglobin 10.3 g/dL (11.5-15.4); Heparin anti-factor XA UFH 0.07 IU/mL (0.30-0.70)
[2021-11-14 14:26] LABS: INR 1.1
[2021-11-14 14:28] LABS: Activated Partial Thrombo Time 27.5 Seconds (26.0-36.0)
[2021-11-14] MEDS: Heparin 25,000UNIT/250ML 1/2NS 25,000 UNIT/250 ML IV.SOLN IVC SCH (14:50)
[2021-11-14] MEDS: levoFLOXacin 750 MG/150 ML 750 MG/150 ML BAG IVPB SCH (17:32)
[2021-11-14] MEDS ORDERED: ALPRAZolam 0.25 MG TABLET PO ONE (17:59)
[2021-11-14] MEDS: traZODone 50 MG TABLET PO SCH (20:59)
[2021-11-14] MEDS: *HR* Heparin 5,000 UNIT/ML VIAL IVP PRN (22:27)
[2021-11-15] MEDS: *HR* OxyCODONE Immed Rel 5 MG TABLET PO PRN ×2 (01:14→09:01)
[2021-11-15 04:57] LABS: Basophils % 0.6 %; Eosinophils # 0.1 K/mcL (0.0-0.6); Eosinophils % 0.8 %; Hematocrit 34.4 % (35.3-44.9); Hemoglobin 11.3 g/dL (11.5-15.4); Immature Granulocytes % 0.5 % (0-4); Mean Corpuscular HGB Conc 32.8 g/dL (31.6-35.5); Mean Corpuscular Hemoglobin 30.1 pg (28.0-33.3); Mean Corpuscular Volume 91.5 fL (83.0-100.0); Mean Platelet Volume 11.1 fL (9.4-12.4); Monocytes # 0.6 K/mcL (0.0-1.3); Monocytes % 8.8 %; Neutrophils # 4.8 K/mcL (1.6-8.9); Platelet Count 158 K/mcL (140-400); Red Blood Count 3.76 M/mcL (3.82-4.97); Red Cell Distribution Width 13.1 % (11.5-14.5); Segmented Neutrophils % 73.3 %; White Blood Count 6.5 K/mcL (4.3-11.1)
[2021-11-15 05:15] LABS: BUN/Creatinine Ratio 12 (6-26); Blood Urea Nitrogen 6 mg/dL (8-23); Calcium 8.2 mg/dL (8.6-10.3); Carbon Dioxide 27 mEq/L (23-29); Chloride 99 mEq/L (98-107); Glucose 117 mg/dL (70-105); Osmolality,Calculated 277 (280-300); Potassium 3.5 mEq/L (3.5-5.1); Sodium 134 mEq/L (136-145)
[2021-11-15] MEDS: *HR* Heparin 5,000 UNIT/ML VIAL IVP PRN (05:24)
[2021-11-15] MEDS: Loratadine 10 MG TABLET PO SCH (09:01)
[2021-11-15] MEDS: clonazePAM 0.5 MG TABLET PO SCH ×2 (09:01→21:52)
[2021-11-15] MEDS: Pregabalin 75 MG CAPSULE PO SCH (09:01)
[2021-11-15] MEDS: Cholecalciferol (D-3) 1,000 UNIT (25MCG) TABLET PO SCH (09:01)
[2021-11-15] MEDS: levoFLOXacin 750 MG/150 ML 750 MG/150 ML BAG IVPB SCH (09:02)
[2021-11-15] MEDS: Multivit/Ca/Min/Fe/FA 1 TAB TABLET PO SCH (09:03)
[2021-11-15] MEDS: lisinopriL 10 MG TABLET PO SCH (10:52)
[2021-11-15] MEDS: Heparin 25,000UNIT/250ML 1/2NS 25,000 UNIT/250 ML IV.SOLN IVC SCH (10:53)
[2021-11-15] MEDS: Ipratropium/Albuterol Neb 3 ML IH SCH ×3 (11:01→21:38)
[2021-11-15] MEDS: Nystatin Cream 15 GM TUBE TP SCH ×2 (11:02→21:53)
[2021-11-15 11:24] LABS: ABG Base Excess 3 mEq/L (-2 to 3); ABG HCO3 27 mEq/L (21-27); ABG Oxygen Saturation 94 % (95-98); ABG PCO2 40 mmHg (35-45); ABG PH 7.45 pH Units (7.32-7.45); ABG PO2 66 mmHg (85-104); ABG TCO2 29 mEq/L (20-26)
[2021-11-15] MEDS ORDERED: Furosemide 20 MG/2 ML VIAL IVP ONE (11:46)
[2021-11-15 13:21] LABS: Influenza A PCR Negative (Negative); Influenza B PCR Negative (Negative); Resp. Syncytial Virus PCR Negative (Negative); SARS-CoV-2 by PCR (In House) Negative (Negative)
[2021-11-15] MEDS ORDERED: Iopamidol - 370 500 ML MLS IVP ONE (16:11)
[2021-11-15 16:29] LABS: Bilirubin,Urine Negative (Negative); Blood,Urine Trace (Negative); Clarity,Urine Clear (Clear); Color,Urine Colorless (Yellow); Glucose,Urine (UA) Normal (Normal); Ketones,Urine Negative (Negative); Leukocyte Esterase,Urine Negative (Negative); Mucus,Urine Few per lpf (None-Few); Nitrite,Urine Negative (Negative); PH,Urine 7.5 pH Units (5.0-8.0); Protein,Urine Negative (Neg-Trace); RBC,Urine 0-3 per hpf (0-3); Specific Gravity,Urine 1.007 (1.010-1.025); Urobilinogen,Urine Normal (Normal); WBC,Urine 0-3 per hpf (0-3)
[2021-11-15] MEDS ORDERED: methylPREDNISolone 125 MG/2 ML VIAL IVP ONE (16:54)
[2021-11-15] MEDS: Vancomycin 1,250 MG/262.5 ML IV.SOLN IVPB SCH (17:53)
[2021-11-15] MEDS: traZODone 50 MG TABLET PO SCH (21:52)
[2021-11-15] MEDS: MethylPREDNISolone 40 MG/ML VIAL IVP SCH (23:49)
[2021-11-16] MEDS: Ipratropium/Albuterol Neb 3 ML IH SCH ×4 (04:35→23:14)
[2021-11-16 05:04] LABS: BUN/Creatinine Ratio 19 (6-26); Blood Urea Nitrogen 10 mg/dL (8-23); Calcium 8.6 mg/dL (8.6-10.3); Carbon Dioxide 32 mEq/L (23-29); Chloride 99 mEq/L (98-107); Glucose 258 mg/dL (70-105); Osmolality,Calculated 288 (280-300); Potassium 3.6 mEq/L (3.5-5.1); Sodium 135 mEq/L (136-145)
[2021-11-16] MEDS: Vancomycin 1,250 MG/262.5 ML IV.SOLN IVPB SCH ×2 (05:23→19:53)
[2021-11-16] MEDS: Cholecalciferol (D-3) 1,000 UNIT (25MCG) TABLET PO SCH (07:36)
[2021-11-16] MEDS: lisinopriL 10 MG TABLET PO SCH (07:37)
[2021-11-16] MEDS: MethylPREDNISolone 40 MG/ML VIAL IVP SCH (07:38)
[2021-11-16] MEDS: clonazePAM 0.5 MG TABLET PO SCH ×2 (07:38→21:43)
[2021-11-16] MEDS: Loratadine 10 MG TABLET PO SCH (07:38)
[2021-11-16] MEDS: levoFLOXacin 750 MG/150 ML 750 MG/150 ML BAG IVPB SCH (07:40)
[2021-11-16] MEDS: Multivit/Ca/Min/Fe/FA 1 TAB TABLET PO SCH (07:41)
[2021-11-16] MEDS ORDERED: Furosemide 40 MG/4 ML VIAL IVP ONE (07:59)
[2021-11-16] MEDS: Nystatin Cream 15 GM TUBE TP SCH ×2 (08:06→21:44)
[2021-11-16] MEDS: *HR* OxyCODONE Immed Rel 5 MG TABLET PO PRN ×2 (09:23→21:43)
[2021-11-16] MEDS: Heparin 25,000UNIT/250ML 1/2NS 25,000 UNIT/250 ML IV.SOLN IVC SCH (12:26)
[2021-11-16] MEDS: *HR* HYDROcodone/Acet 5/325 mg TABLET PO PRN (13:34)
[2021-11-16] MEDS: traZODone 50 MG TABLET PO SCH (21:43)
[2021-11-16] MEDS: Pregabalin 75 MG CAPSULE PO SCH (21:44)
[2021-11-17] MEDS: Heparin 25,000UNIT/250ML 1/2NS 25,000 UNIT/250 ML IV.SOLN IVC SCH (00:09)
[2021-11-17] MEDS: Ipratropium/Albuterol Neb 3 ML IH SCH ×4 (04:20→22:47)
[2021-11-17] MEDS: Vancomycin 1,250 MG/262.5 ML IV.SOLN IVPB SCH (04:46)
[2021-11-17] MEDS: *HR* OxyCODONE Immed Rel 5 MG TABLET PO PRN (04:48)
[2021-11-17 05:01] LABS: Basophils % 0.1 %; Eosinophils % 0.3 %; Hematocrit 29.1 % (35.3-44.9); Hemoglobin 9.5 g/dL (11.5-15.4); Immature Granulocytes % 0.6 % (0-4); Lymphocytes % 12.7 %; Mean Corpuscular HGB Conc 32.6 g/dL (31.6-35.5); Mean Corpuscular Hemoglobin 29.9 pg (28.0-33.3); Mean Corpuscular Volume 91.5 fL (83.0-100.0); Mean Platelet Volume 11.8 fL (9.4-12.4); Monocytes # 0.6 K/mcL (0.0-1.3); Monocytes % 7.3 %; Neutrophils # 6.1 K/mcL (1.6-8.9); Platelet Count 155 K/mcL (140-400); Red Blood Count 3.18 M/mcL (3.82-4.97); Red Cell Distribution Width 12.5 % (11.5-14.5); White Blood Count 7.8 K/mcL (4.3-11.1)
[2021-11-17 05:19] LABS: BUN/Creatinine Ratio 30 (6-26); Blood Urea Nitrogen 19 mg/dL (8-23); Calcium 8.2 mg/dL (8.6-10.3); Carbon Dioxide 30 mEq/L (23-29); Chloride 100 mEq/L (98-107); Glucose 154 mg/dL (70-105); Magnesium 1.8 mg/dL (1.6-2.6); Osmolality,Calculated 287 (280-300); Potassium 3.2 mEq/L (3.5-5.1); Sodium 136 mEq/L (136-145)
[2021-11-17] MEDS: levoFLOXacin 750 MG/150 ML 750 MG/150 ML BAG IVPB SCH (07:23)
[2021-11-17] MEDS: Pregabalin 75 MG CAPSULE PO SCH ×2 (07:29→20:08)
[2021-11-17] MEDS: Loratadine 10 MG TABLET PO SCH (07:29)
[2021-11-17] MEDS: Cholecalciferol (D-3) 1,000 UNIT (25MCG) TABLET PO SCH (07:29)
[2021-11-17] MEDS: Multivit/Ca/Min/Fe/FA 1 TAB TABLET PO SCH (07:30)
[2021-11-17] MEDS: lisinopriL 10 MG TABLET PO SCH (07:30)
[2021-11-17] MEDS: clonazePAM 0.5 MG TABLET PO SCH ×2 (07:30→20:09)
[2021-11-17] MEDS: Nystatin Cream 15 GM TUBE TP SCH (07:32)
[2021-11-17] MEDS ORDERED: Ringers Solution, Lactated 1,000 ML IVC ONE ×2 (10:23→12:35)
[2021-11-17 11:49] LABS: Hematocrit 27.5 % (35.3-44.9); Hemoglobin 9.1 g/dL (11.5-15.4)
[2021-11-17] MEDS ORDERED: Albumin 25% 25gram/100mL 25 GM/100 ML IV.SOLN IVPB ONE (11:54)
[2021-11-17] MEDS ORDERED: Pantoprazole 40 MG VIAL IVP SCH (12:46)
[2021-11-17] MEDS ORDERED: 0.9 % Sodium Chloride 250 ML IVC SCH (13:00)
[2021-11-17] MEDS ORDERED: 0.9 % Sodium Chloride 250 ML ONE (13:37)
[2021-11-17] MEDS ORDERED: Pantoprazole 40 MG in 0.9 % Sodium Chloride Mini Bag 100 ML IVC SCH (14:00)
[2021-11-17] MEDS ORDERED: *HR* Succinylcholine 200 MG/10 ML VIAL IVP ONE (15:24)
[2021-11-17] MEDS ORDERED: Lidocaine -MPF 2% 5 ML VIAL ONE (15:24)
[2021-11-17] MEDS ORDERED: *HR* Phenylephrine 10 MG/ML VIAL ONE (15:25)
[2021-11-17] MEDS ORDERED: *HR* OxyCODONE Immed Rel 5 MG TABLET PO PRN (15:43)
[2021-11-17] MEDS ORDERED: Ondansetron 4 MG/2 ML VIAL IVP PRN (15:43)
[2021-11-17] MEDS ORDERED: *HR* Heparin 5,000 UNIT/ML VIAL IVP PRN ×2 (15:43)
[2021-11-17] MEDS ORDERED: Acetaminophen 325 MG TABLET PO PRN (15:43)
[2021-11-17] MEDS: Pantoprazole 40 MG in 0.9 % Sodium Chloride Mini Bag 100 ML IVC SCH ×2 (15:55→20:09)
[2021-11-17] MEDS: Norepinephrine 4 MG/254 ML IV.SOLN IVC SCH (16:05)
[2021-11-17] MEDS ORDERED: Vancomycin 1,250 MG/262.5 ML IV.SOLN IVPB SCH (17:00)
[2021-11-17] MEDS: traZODone 50 MG TABLET PO SCH (20:06)
[2021-11-17] MEDS: *HR* HYDROcodone/Acet 5/325 mg TABLET PO PRN (20:18)
[2021-11-17] MEDS ORDERED: 0.9 % Sodium Chloride 250 ML IVC ONE (21:33)
[2021-11-18] MEDS: Pantoprazole 40 MG in 0.9 % Sodium Chloride Mini Bag 100 ML IVC SCH ×2 (03:50→10:24)
[2021-11-18] MEDS: Ipratropium/Albuterol Neb 3 ML IH SCH ×4 (03:53→22:35)
[2021-11-18] MEDS: Pregabalin 75 MG CAPSULE PO SCH ×2 (07:32→20:08)
[2021-11-18] MEDS: clonazePAM 0.5 MG TABLET PO SCH ×2 (07:33→23:22)
[2021-11-18] MEDS: Cholecalciferol (D-3) 1,000 UNIT (25MCG) TABLET PO SCH (07:35)
[2021-11-18] MEDS: Multivit/Ca/Min/Fe/FA 1 TAB TABLET PO SCH (07:35)
[2021-11-18] MEDS ORDERED: levoFLOXacin 750 MG/150 ML 750 MG/150 ML BAG IVPB SCH (09:00)
[2021-11-18 10:04] LABS: Basophils % 0.5 %; Eosinophils # 0.3 K/mcL (0.0-0.6); Eosinophils % 4.7 %; Hematocrit 31.1 % (35.3-44.9); Immature Granulocytes % 0.7 % (0-4); Lymphocytes # 0.9 K/mcL (0.6-4.6); Lymphocytes % 16.4 %; Mean Corpuscular HGB Conc 32.2 g/dL (31.6-35.5); Mean Corpuscular Hemoglobin 30.3 pg (28.0-33.3); Mean Corpuscular Volume 94.2 fL (83.0-100.0); Mean Platelet Volume 11.1 fL (9.4-12.4); Monocytes # 0.7 K/mcL (0.0-1.3); Monocytes % 12.6 %; Neutrophils # 3.6 K/mcL (1.6-8.9); Platelet Count 138 K/mcL (140-400); Red Cell Distribution Width 13.2 % (11.5-14.5); Segmented Neutrophils % 65.1 %; White Blood Count 5.6 K/mcL (4.3-11.1)
[2021-11-18 10:09] LABS: Calcium 7.9 mg/dL (8.6-10.3); Magnesium 1.5 mg/dL (1.6-2.6); Potassium 3.5 mEq/L (3.5-5.1)
[2021-11-18] MEDS: Pantoprazole 40 MG VIAL IVP SCH (18:02)
[2021-11-18] MEDS: Heparin 25,000UNIT/250ML 1/2NS 25,000 UNIT/250 ML IV.SOLN IVC SCH (20:09)
[2021-11-18] MEDS: Norepinephrine 4 MG/254 ML IV.SOLN IVC SCH (20:10)
[2021-11-18] MEDS: traZODone 50 MG TABLET PO SCH (23:22)
[2021-11-19] MEDS: traZODone 50 MG TABLET PO SCH ×2 (00:39→21:42)
[2021-11-19] MEDS: *HR* HYDROcodone/Acet 5/325 mg TABLET PO PRN ×2 (01:35→09:49)
[2021-11-19] MEDS: Ipratropium/Albuterol Neb 3 ML IH SCH ×3 (03:47→22:29)
[2021-11-19] MEDS: Pantoprazole 40 MG VIAL IVP SCH ×2 (05:18→17:48)
[2021-11-19] MEDS: Norepinephrine 4 MG/254 ML IV.SOLN IVC SCH (05:19)
[2021-11-19] MEDS: Pregabalin 75 MG CAPSULE PO SCH ×2 (08:09→21:41)
[2021-11-19] MEDS: Multivit/Ca/Min/Fe/FA 1 TAB TABLET PO SCH (08:10)
[2021-11-19] MEDS: clonazePAM 0.5 MG TABLET PO SCH ×2 (08:10→21:41)
[2021-11-19] MEDS: Cholecalciferol (D-3) 1,000 UNIT (25MCG) TABLET PO SCH (08:10)
[2021-11-19 08:47] LABS: Hemoglobin 10.6 g/dL (11.5-15.4); Mean Corpuscular Hemoglobin 30.5 pg (28.0-33.3)
[2021-11-19 08:49] LABS: Basophils % 0.7 %; Eosinophils # 0.3 K/mcL (0.0-0.6); Eosinophils % 5.3 %; Hematocrit 31.7 % (35.3-44.9); Immature Platelets 4.2 % (1.1-6.1); Lymphocytes # 1.2 K/mcL (0.6-4.6); Lymphocytes % 21.3 %; Mean Corpuscular HGB Conc 33.4 g/dL (31.6-35.5); Mean Corpuscular Volume 91.4 fL (83.0-100.0); Mean Platelet Volume 11.6 fL (9.4-12.4); Monocytes # 0.5 K/mcL (0.0-1.3); Monocytes % 8.3 %; Neutrophils # 3.7 K/mcL (1.6-8.9); Platelet Count 129 K/mcL (140-400); Red Blood Count 3.47 M/mcL (3.82-4.97); Red Cell Distribution Width 13.2 % (11.5-14.5); Segmented Neutrophils % 63.4 %; White Blood Count 5.8 K/mcL (4.3-11.1)
[2021-11-19] MEDS ORDERED: Hydrocortisone Sodium Succ 100 MG/2 ML VIAL IVP SCH (09:00)
[2021-11-19] MEDS ORDERED: levoFLOXacin 750 MG TABLET PO SCH (09:00)
[2021-11-19 09:18] LABS: Calcium 8.3 mg/dL (8.6-10.3); Potassium 4.1 mEq/L (3.5-5.1)
[2021-11-19] MEDS ORDERED: Ondansetron 4 MG/2 ML VIAL IVP PRN (09:23)
[2021-11-19] MEDS ORDERED: Acetaminophen 325 MG TABLET PO PRN (09:23)
[2021-11-19] MEDS: Apixaban 5 MG TABLET PO SCH ×2 (10:29→21:41)
[2021-11-19] MEDS: *HR* OxyCODONE Immed Rel 5 MG TABLET PO PRN (14:49)
[2021-11-19] MEDS: Hydrocortisone Sodium Succ 100 MG/2 ML VIAL IVP SCH (16:26)
[2021-11-20] MEDS: Hydrocortisone Sodium Succ 100 MG/2 ML VIAL IVP SCH ×2 (00:08→08:17)
[2021-11-20] MEDS: Ipratropium/Albuterol Neb 3 ML IH SCH ×5 (03:46→20:25)
[2021-11-20] MEDS: Pantoprazole 40 MG VIAL IVP SCH ×2 (06:07→17:37)
[2021-11-20] MEDS: Cholecalciferol (D-3) 1,000 UNIT (25MCG) TABLET PO SCH (08:15)
[2021-11-20] MEDS: Pregabalin 75 MG CAPSULE PO SCH ×2 (08:16→20:58)
[2021-11-20] MEDS: Apixaban 5 MG TABLET PO SCH ×2 (08:16→20:59)
[2021-11-20] MEDS: clonazePAM 0.5 MG TABLET PO SCH ×2 (08:16→20:59)
[2021-11-20] MEDS: Multivit/Ca/Min/Fe/FA 1 TAB TABLET PO SCH (08:16)
[2021-11-20] MEDS ORDERED: levoFLOXacin 750 MG TABLET PO SCH (09:00)
[2021-11-20] MEDS: Hydrocortisone 10 MG TABLET PO SCH ×2 (12:58→21:13)
[2021-11-20] MEDS: traZODone 50 MG TABLET PO SCH (20:58)
[2021-11-20] MEDS: *HR* HYDROcodone/Acet 5/325 mg TABLET PO PRN (21:13)
[2021-11-21] MEDS: Ipratropium/Albuterol Neb 3 ML IH SCH ×4 (02:58→22:40)
[2021-11-21 04:21] LABS: Basophils % 0.5 %; Eosinophils # 0.2 K/mcL (0.0-0.6); Eosinophils % 2.5 %; Hematocrit 30.7 % (35.3-44.9); Hemoglobin 10.2 g/dL (11.5-15.4); Immature Granulocytes % 1.3 % (0-4); Lymphocytes # 1.1 K/mcL (0.6-4.6); Lymphocytes % 17.2 %; Mean Corpuscular HGB Conc 33.2 g/dL (31.6-35.5); Mean Corpuscular Hemoglobin 30.3 pg (28.0-33.3); Mean Corpuscular Volume 91.1 fL (83.0-100.0); Mean Platelet Volume 11.2 fL (9.4-12.4); Monocytes # 0.5 K/mcL (0.0-1.3); Monocytes % 7.9 %; Neutrophils # 4.3 K/mcL (1.6-8.9); Platelet Count 159 K/mcL (140-400); Red Blood Count 3.37 M/mcL (3.82-4.97); Red Cell Distribution Width 12.7 % (11.5-14.5); Segmented Neutrophils % 70.6 %; White Blood Count 6.1 K/mcL (4.3-11.1)
[2021-11-21 04:22] LABS: BUN/Creatinine Ratio 26 (6-26); Blood Urea Nitrogen 16 mg/dL (8-23); Calcium 8.4 mg/dL (8.6-10.3); Carbon Dioxide 30 mEq/L (23-29); Chloride 102 mEq/L (98-107); Glucose 144 mg/dL (70-105); Osmolality,Calculated 290 (280-300); Potassium 3.5 mEq/L (3.5-5.1); Sodium 138 mEq/L (136-145)
[2021-11-21] MEDS: Pantoprazole 40 MG VIAL IVP SCH ×2 (06:31→17:06)
[2021-11-21] MEDS: Apixaban 5 MG TABLET PO SCH ×2 (08:54→20:17)
[2021-11-21] MEDS: Cholecalciferol (D-3) 1,000 UNIT (25MCG) TABLET PO SCH (08:54)
[2021-11-21] MEDS: Pregabalin 75 MG CAPSULE PO SCH ×2 (08:54→20:18)
[2021-11-21] MEDS: clonazePAM 0.5 MG TABLET PO SCH ×2 (08:55→20:17)
[2021-11-21] MEDS: Multivit/Ca/Min/Fe/FA 1 TAB TABLET PO SCH (08:55)
[2021-11-21] MEDS: *HR* HYDROcodone/Acet 5/325 mg TABLET PO PRN ×2 (08:55→17:07)
[2021-11-21] MEDS: Hydrocortisone 10 MG TABLET PO SCH ×2 (09:25→20:18)
[2021-11-21] MEDS: *HR* OxyCODONE Immed Rel 5 MG TABLET PO PRN ×2 (11:14→23:27)
[2021-11-21] MEDS: traZODone 50 MG TABLET PO SCH (20:18)
[2021-11-22] MEDS: Ipratropium/Albuterol Neb 3 ML IH SCH ×4 (04:09→20:52)
[2021-11-22] MEDS: Pantoprazole 40 MG VIAL IVP SCH ×2 (05:37→17:19)
[2021-11-22] MEDS: Multivit/Ca/Min/Fe/FA 1 TAB TABLET PO SCH (07:34)
[2021-11-22] MEDS: clonazePAM 0.5 MG TABLET PO SCH ×2 (07:34→21:18)
[2021-11-22] MEDS: Hydrocortisone 10 MG TABLET PO SCH ×2 (07:34→21:18)
[2021-11-22] MEDS: Cholecalciferol (D-3) 1,000 UNIT (25MCG) TABLET PO SCH (07:34)
[2021-11-22] MEDS: Apixaban 5 MG TABLET PO SCH ×2 (07:34→21:18)
[2021-11-22] MEDS: Pregabalin 75 MG CAPSULE PO SCH ×2 (07:35→21:18)
[2021-11-22] MEDS: *HR* HYDROcodone/Acet 5/325 mg TABLET PO PRN (14:35)
[2021-11-22] MEDS: traZODone 50 MG TABLET PO SCH (21:18)
[2021-11-23] MEDS: Ipratropium/Albuterol Neb 3 ML IH SCH ×4 (05:23→21:17)
[2021-11-23] MEDS: Pantoprazole 40 MG VIAL IVP SCH (06:05)
[2021-11-23] MEDS: Apixaban 5 MG TABLET PO SCH ×2 (09:18→20:48)
[2021-11-23] MEDS: Cholecalciferol (D-3) 1,000 UNIT (25MCG) TABLET PO SCH (09:18)
[2021-11-23] MEDS: clonazePAM 0.5 MG TABLET PO SCH ×2 (09:19→20:48)
[2021-11-23] MEDS: Pregabalin 75 MG CAPSULE PO SCH ×2 (09:19→20:48)
[2021-11-23] MEDS: Hydrocortisone 10 MG TABLET PO SCH ×2 (09:20→20:48)
[2021-11-23] MEDS: Multivit/Ca/Min/Fe/FA 1 TAB TABLET PO SCH (09:20)
[2021-11-23] MEDS: *HR* OxyCODONE Immed Rel 5 MG TABLET PO PRN (11:30)
[2021-11-23] MEDS: traZODone 50 MG TABLET PO SCH (20:48)
[2021-11-24] MEDS: Ipratropium/Albuterol Neb 3 ML IH SCH ×4 (04:24→21:26)
[2021-11-24] MEDS: clonazePAM 0.5 MG TABLET PO SCH ×2 (07:59→21:58)
[2021-11-24] MEDS: Multivit/Ca/Min/Fe/FA 1 TAB TABLET PO SCH (07:59)
[2021-11-24] MEDS: Hydrocortisone 10 MG TABLET PO SCH ×2 (07:59→21:57)
[2021-11-24] MEDS: Apixaban 5 MG TABLET PO SCH ×2 (07:59→21:58)
[2021-11-24] MEDS: Pregabalin 75 MG CAPSULE PO SCH ×2 (07:59→21:58)
[2021-11-24] MEDS: Cholecalciferol (D-3) 1,000 UNIT (25MCG) TABLET PO SCH (08:00)
[2021-11-24] MEDS: *HR* OxyCODONE Immed Rel 5 MG TABLET PO PRN ×2 (14:14→20:39)
[2021-11-24] MEDS ORDERED: *HR* OxyCODONE Immed Rel 5 MG TABLET ONE (20:34)
[2021-11-24] MEDS: traZODone 50 MG TABLET PO SCH (21:58)
[2021-11-25] MEDS: Ipratropium/Albuterol Neb 3 ML IH SCH ×3 (04:07→15:43)
[2021-11-25] MEDS: Cholecalciferol (D-3) 1,000 UNIT (25MCG) TABLET PO SCH (09:13)
[2021-11-25] MEDS: Apixaban 5 MG TABLET PO SCH (09:13)
[2021-11-25] MEDS: Multivit/Ca/Min/Fe/FA 1 TAB TABLET PO SCH (09:14)
[2021-11-25] MEDS: Hydrocortisone 10 MG TABLET PO SCH (09:14)
[2021-11-25] MEDS: Pregabalin 75 MG CAPSULE PO SCH (09:14)
[2021-11-25] MEDS: clonazePAM 0.5 MG TABLET PO SCH (09:14)
[2021-11-25 11:31] VITALS: BP 106/75; PULSE 68; TEMP 98.6
[2021-11-25 12:04] LABS: Adenovirus Not Detected (Not Detect); Bordetella Pertussis Not Detected (Not Detect); Chlamydophila pneumoniae Not Detected (Not Detect); Coronavirus 229E Not Detected (Not Detect); Coronavirus HKU1 Not Detected (Not Detect); Coronavirus NL63 Not Detected (Not Detect); Coronavirus OC43 Not Detected (Not Detect); Human Metapneumovirus Not Detected (Not Detect); Human Rhinovirus/Enterovirus Not Detected (Not Detect); Influenza A Subtype 2009 H1 Not Detected (Not Detect); Influenza B Not Detected (Not Detect); Mycoplasma pneumoniae Not Detected (Not Detect); Parainfluenza Virus 1 Not Detected (Not Detect); Parainfluenza Virus 2 Not Detected (Not Detect); Parainfluenza Virus 3 Not Detected (Not Detect); Parainfluenza Virus 4 Not Detected (Not Detect); Respiratory Syncytial Virus Not Detected (Not Detect); SARS-CoV-2 Not Detected (Not Detect)
[2021-11-25 15:45] VITALS: O2SAT 98
== END 2021-11-25 16:03 | DRG 459 ==
LOC: EMEROOARM 11:37 → SUATTDRO 16:11 → 4WAOSI 16:11 → ICNU 11-17 15:38 → 4WAOSI 11-19 13:36
PROVIDERS: ADMIT Internal Medicine; ATTEND Internal Medicine